=== PATIENT | female | born 1980 | race Caucasian/White ===

== ENCOUNTER 2016-12-15 23:10 | Emergency (ER) | payer SELFPAY ==
[2016-12-15 23:44] VITALS: BP 137/65
--- NOTE | 2016-12-16 | EDM.PDOC ---
ED HPI GENERAL MEDICAL PROBLEM - General Chief Complaint: General Stated Complaint: numbness R arm Time Seen by Provider: 12/15/16 23:30 Source of Information: Reports: Patient History Limitations: Reports: No limitations - History of Present Illness INITIAL COMMENTS - FREE TEXT/NARRATIVE: PT STATES SHE HAS BEEN SEPRESSED LAST FEW DATS. TODAY SHE FELT "OFF" ALL DAY. TOOK 0.5 ATIVAN TO SLEEP AND DEVELOPED RIGHT KLBEER NUMBNESS. BECAME ANXIOUS AND GOT ON COMPUTER TO SEE IF SYMPTOMS WERE WORRISOME. THEN DEVELOPED VAGUE CP AND DECIDED TO PRESENT TO ER. DENIES FEVER, DIAPHORESIS, N/V, FACIAL NUMBNESS Onset: today Location: Reports: chest, upper extremity, right Quality: Reports: Other (NUMBNESS) Improves with: Reports: None Worsens with: Reports: None Associated Symptoms: Reports: chest pain. 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: Other (see below) Other Treatments WATCH MANUFACTURING SUPERVISOR: lorazepam 0.5mg - Related Data Allergies Allergy/AdvReac Type Severity Reaction Status Date / Time amoxicillin [Amoxicillin] Allergy Anaphylactic Verified 12/15/16 23:13 Shock Home Meds: Home Meds LORazepam [LORazepam] 0.5 mg PO DAILY PRN 08/23/16 [History] Past Medical History - Past Health History Medical/Surgical History: Denies Medical/Surgical History Other Cardiovascular History: Peripheral artery disease Respiratory History: Reports: Other (see below) 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: smoker 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: Psychiatric History: Reports: Anxiety, Panic attack Social & Family History - Family History Cardiac: Reports: Other (see below) Other Cardiac Family History: reports has family has cardiac issues - Tobacco Use Smoking Status *Q: Current Every Day Smoker Years of Tobacco use: 10 Packs/Tins Daily: 0.5 Used Tobacco, but Quit: No Second Hand Smoke Exposure: Yes - Caffeine Use Caffeine Use: Reports: Coffee - Alcohol Use Days Per Week of Alcohol Use: 0 - Recreational Drug Use Recreational Drug Use: No - Living Situation & Occupation Living situation: Reports: single, with significant other Occupation: employed ED ROS GENERAL - Review of Systems Review Of Systems: ROS reveals no pertinent complaints other than HPI. Constitutional: Reports: no symptoms HEENT: Reports: No symptoms Respiratory: Reports: No Symptoms Cardiovascular: Reports: No symptoms Endocrine: Reports: no symptoms GI/Abdominal: Reports: No symptoms : Reports: no symptoms Musculoskeletal: Reports: no symptoms Skin: Reports: no symptoms Neurological: Reports: No Symptoms Psychiatric: Reports: Anxiety Hematologic/Lymphatic: Reports: no symptoms Immunologic: Reports: no symptoms ED EXAM, GENERAL - Physical Exam Exam: See Below Exam Limited By: No limitations General Appearance: alert, WD/WN, anxious Eye Exam: bilateral eye: normal inspection Nose: normal inspection, normal mucosa, no blood Throat/Mouth: Normal inspection, Normal oropharynx, No airway compromise Head: atraumatic, normocephalic Neck: normal inspection, supple Respiratory/Chest: no respiratory distress, lungs clear, normal breath sounds, no accessory muscle use, chest non-tender Cardiovascular: regular rate, rhythm, no murmur GI/Abdominal: normal bowel sounds, soft, non tender, no organomegaly, no distention, no abnormal bruit, no mass Back Exam: normal inspection. No: CVA tenderness (L), CVA tenderness (R) Extremities: normal inspection, normal range of motion, non-tender, no pedal edema, normal capillary refill Neurological: alert, oriented, normal cognition Psychiatric: anxious Skin Exam: Warm, Dry, Intact, Normal color, No rash Lymphatic: no adenopathy Course - Vital Signs Last Recorded V/S: Last Vital Signs Temp 97.9 F 12/15/16 23:17 Pulse 89 12/15/16 23:30 Resp 18 12/15/16 23:30 BP 137/65 12/15/16 23:30 Pulse Ox 100 12/15/16 23:30 - Orders/Labs/Meds Orders: Active Orders 24 hr Category Date Time Status EKG Documentation Completion [RC] ASDIRECTED Care 12/15/16 23:23 Active EKG 12 Lead [EK] Routine Ther 12/15/16 23:23 Ordered - Re-Assessments/Exams Free Text/Narrative Re-Assessment/Exam: 12/16/16 00:00 PT AFEBRILE, NONTOXIC APPEARING, RUE NUMBNESS RESOLVED WHILE IN ER. PT FEELING BETTER. WILL TAKE XANAX WHEN SHE GETS HOME AND F/U [facility] PCP Departure - Departure Time of Disposition: 00:04 Disposition: Home, Self-Care 01 Condition: good Clinical Impression: Anxiety attack Instructions: Panic Attacks, [id number] Forms: ED Department Discharge Additional Instructions: FOLLOW UP WITH PCP IN NEXT 2 DAYS. RETURN TO ER SOONER IF SYMPTOMS WORSEN - My Orders Last 24 Hours: My Active Orders 12/15/16 23:23 EKG Documentation Completion [RC] ASDIRECTED EKG 12 Lead [EK] Routine - Assessment/Plan Last 24 Hours: My Active Orders 12/15/16 23:23 EKG Documentation Completion [RC] ASDIRECTED EKG 12 Lead [EK] Routine
[2016-12-16] MEDS ORDERED: Ketorolac 60 MG/2 ML SDV IM ONE (00:02)
== END 2016-12-16 00:08 | disposition home or self-care (01) ==
LOC: KA.ED 23:10
DX: F41.9 Anxiety disorder, unspecified (principal); F17.210 Nicotine dependence, cigarettes, uncomplicated; Z88.1 Allergy status to other antibiotic agents
CPT/HCPCS: 96372; 99283; J1885; 93005; 99282

== ENCOUNTER 2017-01-29 03:15 | Emergency (ER) | payer SELFPAY ==
[2017-01-29 03:25] VITALS: BP 123/62
[2017-01-29] MEDS ORDERED: Ketorolac 60 MG/2 ML SDV IM ONE (04:04)
[2017-01-29] MEDS ORDERED: Sulfamethoxazole/Trimethoprim 800-160 MG Tab PO ONE (04:04)
--- NOTE | 2017-01-29 04:04 | EDM.PDOC ---
ED HPI GENERAL MEDICAL PROBLEM - General Chief Complaint: General Stated Complaint: periarea boil Time Seen by Provider: 01/29/17 03:45 Source of Information: Reports: Patient History Limitations: Reports: No Limitations - History of Present Illness INITIAL COMMENTS - FREE TEXT/NARRATIVE: 36 yo wf presents to ER with fever/chills which began tonight around 1am. Pt reports she has had a small vaginal abscess x 3 days which has began draining this evening after placing warm compresses to area and gentle squeezing. Pt denies any coughing or congestion. Pt reports dysuria x 1 day, but denies frequency or urgency. 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 - Related Data Allergies Allergy/AdvReac Type Severity Reaction Status Date / Time amoxicillin [Amoxicillin] Allergy Anaphylactic Verified 01/29/17 03:18 Shock Home Meds: Home Meds LORazepam [LORazepam] 0.5 mg PO DAILY PRN 08/23/16 [History] Sulfamethoxazole/Trimethoprim [Septra DS] 1 tab PO BID #20 tablet 01/29/17 [Rx] traMADol [Ultram] 50 mg PO Q6H PRN #15 tablet 01/29/17 [Rx] Past Medical History - Past Health History Medical/Surgical History: Denies Medical/Surgical History Other Cardiovascular History: Peripheral artery disease Respiratory History: Reports: Other (see below) 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: smoker 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: Psychiatric History: Reports: Anxiety, Panic attack Social & Family History - Family History Cardiac: Reports: Other (see below) Other Cardiac Family History: reports has family has cardiac issues - Tobacco Use Smoking Status *Q: Current Every Day Smoker Years of Tobacco use: 10 Packs/Tins Daily: 0.5 Used Tobacco, but Quit: No Second Hand Smoke Exposure: Yes - Caffeine Use Caffeine Use: Reports: Coffee - Alcohol Use Days Per Week of Alcohol Use: 0 - Recreational Drug Use Recreational Drug Use: No - Living Situation & Occupation Living situation: Reports: single, with significant other Occupation: employed ED ROS GENERAL - Review of Systems Review Of Systems: See Below Constitutional: Reports: Fever, Chills HEENT: Reports: No Symptoms Respiratory: Reports: No Symptoms Cardiovascular: Reports: No Symptoms Endocrine: Reports: No Symptoms GI/Abdominal: Reports: No Symptoms : Reports: Dysuria Musculoskeletal: Reports: No Symptoms Skin: Reports: No Symptoms Neurological: Reports: No Symptoms Psychiatric: Reports: No Symptoms Hematologic/Lymphatic: Reports: No Symptoms Immunologic: Reports: No Symptoms ED EXAM, GENERAL - Physical Exam Exam: See Below Exam Limited By: No Limitations General Appearance: Alert, WD/WN, No Apparent Distress Ears: Normal External Exam, Normal Canal, Hearing Grossly Normal, Normal TMs Ear Exam: Bilateral Ear: Auricle Normal, Canal Normal, TM normal Nose: Normal Inspection, Normal Mucosa, No Blood Throat/Mouth: Normal Inspection, Normal Lips, Normal Teeth, Normal Gums, Normal Oropharynx, Normal Voice, No Airway Compromise Head: Atraumatic, Normocephalic Neck: Normal Inspection, Supple, Non-Tender, Full Range of Motion Respiratory/Chest: No Respiratory Distress, Lungs Clear, Normal Breath Sounds, No Accessory Muscle Use, Chest Non-Tender Cardiovascular: Normal Peripheral Pulses, Regular Rate, Rhythm, No Edema, No Gallop, No JVD, No Murmur, No Rub GI/Abdominal: Normal Bowel Sounds, Soft, Non-Tender, No Organomegaly, No Distention, No Abnormal Bruit, No Mass (Female) Exam: Vaginal Lesions (right labial majora) Back Exam: Normal Inspection, Full Range of Motion, NT Extremities: Normal Inspection, Normal Range of Motion, Non-Tender, Normal Capillary Refill, No Pedal Edema Neurological: Alert, Oriented, CN II-XII Intact, Normal Cognition, Normal Gait, Normal Reflexes, No Motor/Sensory Deficits Psychiatric: Normal Affect, Normal Mood Skin Exam: Warm, Dry, Intact, Normal Color, No Rash Lymphatic: No Adenopathy Course - Vital Signs Last Recorded V/S: Last Vital Signs Temp 37.7 C 01/29/17 03:18 Pulse 92 01/29/17 03:18 Resp 20 01/29/17 03:18 BP 123/62 01/29/17 03:18 Pulse Ox 96 01/29/17 03:18 - Orders/Labs/Meds Orders: Active Orders 24 hr Category Date Time Status URINALYSIS W/MICROSCOPIC [UA W/MICROSCOPIC] [URIN] Stat Lab 01/29/17 03:57 Uncollected Labs: Laboratory Tests 01/29/17 Range/Units 03:55 Urine Color Yellow (YELLOW) Urine Appearance Clear (CLEAR) Urine pH 7.0 (5.0-9.0) Ur Specific [place] 1.010 (1.005-1.030) Urine Protein Negative (NEGATIVE) mg/dL Urine Glucose (UA) Negative (NEGATIVE) mg/dL Urine Ketones Negative (NEGATIVE) mg/dL Urine Occult Blood Trace-lysed H (NEGATIVE) Urine Nitrite Negative (NEGATIVE) Urine Bilirubin Negative (NEGATIVE) Urine Urobilinogen 0.2 (0.2-1.0) E.U./dL Ur Leukocyte Esterase Negative (NEGATIVE) Meds: Medications Discontinued Medications Generic Name Dose Route Start Last Admin Trade Name Freq PRN Reason Stop Dose Admin Ketorolac Tromethamine 60 mg 01/29/17 04:04 01/29/17 04:10 Toradol IM 01/29/17 04:05 60 mg ONETIME ONE Administration Trimethoprim/Sulfamethoxazole 1 tab 01/29/17 04:04 01/29/17 04:10 Septra Ds PO 01/29/17 04:05 1 tab ONETIME ONE Administration Departure - Departure Time of Disposition: 04:24 Disposition: Home, Self-Care 01 Condition: good Clinical Impression: Abscess, vagina Fever Qualifiers: Encounter type: initial encounter - Discharge Information Prescriptions: Sulfamethoxazole/Trimethoprim [Septra DS] 1 tab PO BID #20 tablet traMADol [Ultram] 50 mg PO Q6H PRN #15 tablet PRN Reason: Pain Instructions: Bartholin Cyst or Abscess, Fever, Adult Referrals: Siena Barron MD [Primary Care Provider] - Forms: ED Department Discharge - My Orders Last 24 Hours: My Active Orders 01/29/17 03:57 URINALYSIS W/MICROSCOPIC [UA W/MICROSCOPIC] [URIN] Stat - Assessment/Plan Last 24 Hours: My Active Orders 01/29/17 03:57 URINALYSIS W/MICROSCOPIC [UA W/MICROSCOPIC] [URIN] Stat Assessment:: 1. fever 2. labial majora abscess- <0.5cm- open and draining Plan: 1. motrin 600mg PO Q6 PRN 2. tylenol 1g Q6 PRN 3. ultram 50mg PO Q6 #15 4. septra DS 1 bid x 10 days 5. follow up in clinic in 2 days for recheck 6. discharge home
== END 2017-01-29 04:33 | disposition home or self-care (01) ==
LOC: KA.ED 03:15
DX: N76.0 Acute vaginitis (principal); F41.9 Anxiety disorder, unspecified; F17.210 Nicotine dependence, cigarettes, uncomplicated; Z88.1 Allergy status to other antibiotic agents; Z79.899 Other long term (current) drug therapy
CPT/HCPCS: 81001; 96372; 99283; A9270; J1885

== ENCOUNTER 2017-02-19 01:52 | Emergency (ER) | payer SELFPAY ==
[2017-02-19 01:58] VITALS: BP 139/83
--- NOTE | 2017-02-19 02:27 | EDM.PDOC ---
ED HPI GENERAL MEDICAL PROBLEM - General Chief Complaint: General Stated Complaint: R hip pain/sting Time Seen by Provider: 02/19/17 02:12 Source of Information: Reports: Patient History Limitations: Reports: No Limitations - History of Present Illness INITIAL COMMENTS - FREE TEXT/NARRATIVE: 36 yo WF presents to ER complaining of right sided back pain with radiation to right calf which began at 6:00pm yesterday. Pt reports she was sitting all day ( driving to [place] then sitting at a [employer] game all day and driving home). Pt reports worse pain with movement. Pt denies any urinary symptoms. Pt denies any lower extremity swelling or redness. 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 - Related Data Allergies Allergy/AdvReac Type Severity Reaction Status Date / Time amoxicillin [Amoxicillin] Allergy Anaphylactic Verified 02/19/17 01:54 Shock Home Meds: Home Meds LORazepam [LORazepam] 0.5 mg PO DAILY PRN 08/23/16 [History] Cyclobenzaprine [Flexeril] 10 mg PO TID PRN #15 tablet 02/19/17 [Rx] Prednisone [IJD: predniSONE] 20 mg PO WITHBREAKFAST #15 tab 02/19/17 [Rx] traMADol [Ultram] 50 mg PO Q6H #15 tablet 02/19/17 [Rx] Past Medical History - Past Health History Medical/Surgical History: Denies Medical/Surgical History Other Cardiovascular History: Peripheral artery disease Respiratory History: Reports: Other (See Below) 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: 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: Psychiatric History: Reports: Anxiety, Panic Attack Social & Family History - Family History Cardiac: Reports: Other (See Below) Other Cardiac Family History: reports has family has cardiac issues - Tobacco Use Smoking Status *Q: Current Every Day Smoker Years of Tobacco use: 10 Packs/Tins Daily: 0.5 Used Tobacco, but Quit: No Second Hand Smoke Exposure: Yes - Caffeine Use Caffeine Use: Reports: Coffee - Alcohol Use Days Per Week of Alcohol Use: 0 - Recreational Drug Use Recreational Drug Use: No - Living Situation & Occupation Living situation: Reports: Single, with Significant Other Occupation: Employed ED ROS GENERAL - Review of Systems Review Of Systems: See Below Constitutional: Reports: No Symptoms HEENT: Reports: No Symptoms Respiratory: Reports: No Symptoms Cardiovascular: Reports: No Symptoms Endocrine: Reports: No Symptoms GI/Abdominal: Reports: No Symptoms : Reports: No Symptoms Musculoskeletal: Reports: Back Pain Skin: Reports: No Symptoms Neurological: Reports: No Symptoms Psychiatric: Reports: No Symptoms Hematologic/Lymphatic: Reports: No Symptoms Immunologic: Reports: No Symptoms ED EXAM, GENERAL - Physical Exam Exam: See Below Exam Limited By: No Limitations General Appearance: Alert, WD/WN, No Apparent Distress Eye Exam: Bilateral Eye: EOMI, PERRL Ears: Normal External Exam, Normal Canal, Hearing Grossly Normal, Normal TMs Ear Exam: Bilateral Ear: Auricle Normal, Canal Normal, TM normal Nose: Normal Inspection, Normal Mucosa, No Blood Throat/Mouth: Normal Inspection, Normal Lips, Normal Teeth, Normal Gums, Normal Oropharynx, Normal Voice, No Airway Compromise Head: Atraumatic, Normocephalic Neck: Normal Inspection, Supple, Non-Tender, Full Range of Motion Respiratory/Chest: No Respiratory Distress, Lungs Clear, Normal Breath Sounds, No Accessory Muscle Use, Chest Non-Tender Cardiovascular: Normal Peripheral Pulses, Regular Rate, Rhythm, No Edema, No Gallop, No JVD, No Murmur, No Rub GI/Abdominal: Normal Bowel Sounds, Soft, Non-Tender, No Organomegaly, No Distention, No Abnormal Bruit, No Mass Back Exam: Normal Inspection, Full Range of Motion, Muscle Spasm Extremities: Normal Inspection, Normal Range of Motion, Non-Tender, Normal Capillary Refill, No Pedal Edema Neurological: Alert, Oriented, CN II-XII Intact, Normal Cognition, Normal Gait, Normal Reflexes, No Motor/Sensory Deficits Psychiatric: Normal Affect, Normal Mood Skin Exam: Warm, Dry, Intact, Normal Color, No Rash Lymphatic: No Adenopathy Course - Vital Signs Last Recorded V/S: Last Vital Signs Temp 36.1 C 02/19/17 01:57 Pulse 78 02/19/17 01:57 Resp 18 02/19/17 01:57 BP 139/83 02/19/17 01:57 Pulse Ox 98 02/19/17 01:57 Departure - Departure Time of Disposition: 02:30 Disposition: Home, Self-Care 01 Condition: good Clinical Impression: Sciatica of right side - Discharge Information Prescriptions: Cyclobenzaprine [Flexeril] 10 mg PO TID PRN #15 tablet PRN Reason: Muscle Spasm Prednisone [IJD: predniSONE] 20 mg PO WITHBREAKFAST #15 tab traMADol [Ultram] 50 mg PO Q6H #15 tablet Instructions: Sciatica Forms: ED Department Discharge - Assessment/Plan Assessment:: 1. acute sciatica Plan: 1. d/c home 2. ultram 50mg po q6 prn pain 3. flexiril 10mg po tid prn muscle spasms 4. prednisone 60mg po qd x 5 days 5. stretching/heat/activity 6. follow up with Dr Hayward for further evaluation and treatment
[2017-02-19] MEDS ORDERED: traMADol 50 MG Tab PO ONE (02:32)
[2017-02-19] MEDS ORDERED: predniSONE 20 MG Tab PO PRN (02:32)
[2017-02-19] MEDS ORDERED: predniSONE 20 MG Tab ONE (02:37)
== END 2017-02-19 02:50 | disposition home or self-care (01) ==
LOC: KA.ED 01:52
DX: M54.31 Sciatica, right side (principal); F41.0 Panic disorder [episodic paroxysmal anxiety]; F17.210 Nicotine dependence, cigarettes, uncomplicated; Z79.899 Other long term (current) drug therapy; Z88.1 Allergy status to other antibiotic agents
CPT/HCPCS: 99283; A9270

== ENCOUNTER 2017-07-08 21:19 | Emergency (ER) | payer SELFPAY ==
[2017-07-08 21:55] VITALS: BP 134/74
[2017-07-08] MEDS ORDERED: Albuterol/Ipratropium 3.0-0.5 MG/3 ML Neb Soln NEB ONE (21:58)
[2017-07-08] MEDS ORDERED: Ketorolac 60 MG/2 ML SDV IM ONE (21:58)
--- NOTE | 2017-07-08 21:58 | EDM.PDOC ---
ED HPI GENERAL MEDICAL PROBLEM - General Chief Complaint: General Stated Complaint: "I don't feel well" Time Seen by Provider: 07/08/17 21:35 Source of Information: Reports: Patient History Limitations: Reports: No Limitations - History of Present Illness INITIAL COMMENTS - FREE TEXT/NARRATIVE: 37 YO WF presents to ER complaining of a 3 day history of productive cough, congestion, and mild shortness of breath. Pt reports she was seen by her PCP today and was diagnosed with a sinus infection and put on cipro. Pt states she doesn't feel any better and now has complaints of left upper back pain. Pt denies any fever but states she has been having chills for the last 2 days. Pt smokes 1/2 pack of cigarettes a day. Onset Date: 07/05/17 Duration: Day(s): (3) Location: Reports: Back Quality: Reports: Ache Severity: Mild Improves with: Reports: Rest Worsens with: Reports: Movement Associated Symptoms: Reports: Cough, cough w sputum, Fever/Chills, Headaches, Malaise, Shortness of Breath. 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 - Related Data Allergies Allergy/AdvReac Type Severity Reaction Status Date / Time amoxicillin [Amoxicillin] Allergy Anaphylactic Verified 07/08/17 21:24 Shock Home Meds: Home Meds LORazepam [LORazepam] 0.5 mg PO DAILY PRN 08/23/16 [History] Cyclobenzaprine [Flexeril] 10 mg PO TID PRN #15 tablet 02/19/17 [Rx] Prednisone [IJD: predniSONE] 20 mg PO WITHBREAKFAST #15 tab 02/19/17 [Rx] traMADol [Ultram] 50 mg PO Q6H #15 tablet 02/19/17 [Rx] Albuterol [IMW: Albuterol HFA] 1 puff .XX Q4HR #8 gm 07/08/17 [Rx] Azithromycin [Zithromax] 250 mg PO DAILY #6 tablet 07/08/17 [Rx] Cetirizine [ZyrTEC] 10 mg PO DAILY #30 tablet 07/08/17 [Rx] Past Medical History - Past Health History Medical/Surgical History: Denies Medical/Surgical History Other Cardiovascular History: Peripheral artery disease Respiratory History: Reports: Other (See Below) 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: smoker 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: Psychiatric History: Reports: Anxiety, Panic Attack Social & Family History - Family History Cardiac: Reports: Other (See Below) Other Cardiac Family History: reports has family has cardiac issues - Tobacco Use Smoking Status *Q: Current Every Day Smoker Years of Tobacco use: 10 Packs/Tins Daily: 0.5 Used Tobacco, but Quit: No Second Hand Smoke Exposure: Yes - Caffeine Use Caffeine Use: Reports: Coffee - Alcohol Use Days Per Week of Alcohol Use: 0 - Recreational Drug Use Recreational Drug Use: No - Living Situation & Occupation Living situation: Reports: Single, with Significant Other Occupation: Employed ED ROS GENERAL - Review of Systems Review Of Systems: See Below Constitutional: Reports: No Symptoms, Malaise HEENT: Reports: Sinus Problem. Denies: Throat Pain Respiratory: Reports: Shortness of Breath Cardiovascular: Reports: No Symptoms Endocrine: Reports: No Symptoms GI/Abdominal: Reports: No Symptoms : Reports: No Symptoms Musculoskeletal: Reports: No Symptoms Skin: Reports: No Symptoms Neurological: Reports: No Symptoms Psychiatric: Reports: No Symptoms Hematologic/Lymphatic: Reports: No Symptoms Immunologic: Reports: No Symptoms ED EXAM, GENERAL - Physical Exam Exam: See Below Exam Limited By: No Limitations General Appearance: Alert, WD/WN, No Apparent Distress Ears: Normal External Exam, Normal Canal, Hearing Grossly Normal, Normal TMs Throat/Mouth: Normal Inspection, Normal Lips, Normal Teeth, Normal Gums, Normal Oropharynx, Normal Voice, No Airway Compromise Head: Atraumatic, Normocephalic Neck: Normal Inspection, Supple, Non-Tender, Full Range of Motion Respiratory/Chest: No Respiratory Distress, Normal Breath Sounds, No Accessory Muscle Use, Chest Non-Tender, Wheezing Cardiovascular: Normal Peripheral Pulses, Regular Rate, Rhythm, No Edema, No Gallop, No JVD, No Murmur, No Rub GI/Abdominal: Normal Bowel Sounds, Soft, Non-Tender, No Organomegaly, No Distention, No Abnormal Bruit, No Mass Back Exam: Muscle Spasm (left upper back) Extremities: Normal Inspection, Normal Range of Motion, Non-Tender, Normal Capillary Refill, No Pedal Edema Neurological: Alert, Oriented, CN II-XII Intact, Normal Cognition, Normal Gait, Normal Reflexes, No Motor/Sensory Deficits Psychiatric: Normal Affect, Normal Mood Skin Exam: Warm, Dry, Intact, Normal Color, No Rash Lymphatic: No Adenopathy Course - Vital Signs Last Recorded V/S: Last Vital Signs Temp 37.3 C 07/08/17 21:25 Pulse 82 07/08/17 21:58 Resp 18 07/08/17 21:25 BP 134/74 07/08/17 21:25 Pulse Ox 99 07/08/17 21:58 - Orders/Labs/Meds Orders: Active Orders 24 hr Category Date Time Status RT Aerosol Therapy [RC] ASDIRECTED Care 07/08/17 21:58 Active Chest 2V [CR] Stat Exams 07/08/17 21:40 Taken INFLUENZA A+B AG SCREEN [RM] Stat Lab 07/08/17 21:41 Ordered UA W/O MICROSCOPIC [URIN] Stat Lab 07/08/17 21:30 Results Labs: Laboratory Tests 07/08/17 07/08/17 07/08/17 Range/Units 21:30 21:30 21:30 Specimen Type Urincc Urine Color Light yellow Light yellow (YELLOW) Urine Appearance Clear Clear (CLEAR) Urine pH 7.0 7.0 (5.0-9.0) Ur Specific [place] 1.010 <= 1.005 (1.005-1.030) Urine Protein Negative Negative (NEGATIVE) mg/dL Urine Glucose (UA) Negative Negative (NEGATIVE) mg/dL Urine Ketones Negative Negative (NEGATIVE) mg/dL Urine Occult Blood Trace-intact H Trace-lysed H (NEGATIVE) Urine Nitrite Negative Negative (NEGATIVE) Urine Bilirubin Negative Negative (NEGATIVE) Urine Urobilinogen 0.2 0.2 (0.2-1.0) E.U./dL Ur Leukocyte Esterase Negative Negative (NEGATIVE) Urine RBC 5-10 H /HPF Urine WBC 0-5 /HPF Ur Epithelial Cells Rare /LPF Urine Bacteria Rare (NONE TO FEW) /HPF Urine HCG, Qual Negative (NEGATIVE) Meds: Medications Discontinued Medications Generic Name Dose Route Start Last Admin Trade Name Freq PRN Reason Stop Dose Admin Albuterol/Ipratropium 3 ml 07/08/17 21:58 07/08/17 22:15 Duoneb 3.0-0.5 Mg/3 Ml NEB 07/08/17 21:59 3 ml ONETIME ONE Administration Ketorolac Tromethamine 60 mg 07/08/17 21:58 07/08/17 22:10 Toradol IM 07/08/17 21:59 60 mg ONETIME ONE Administration - Radiology Interpretation Free Text/Narrative:: CXR- NAD Departure - Departure Time of Disposition: 22:28 Disposition: Home, Self-Care 01 Condition: Good Clinical Impression: Acute bronchitis Qualifiers: Bronchitis organism: unspecified organism Qualified Code(s): J20.9 - Acute bronchitis, unspecified - Discharge Information Prescriptions: Albuterol [IMW: Albuterol HFA] 1 puff .XX Q4HR #8 gm Azithromycin [Zithromax] 250 mg PO DAILY #6 tablet Cetirizine [ZyrTEC] 10 mg PO DAILY #30 tablet Instructions: Viral Respiratory Infection, Acute Bronchitis Referrals: Siena Barron MD [Primary Care Provider] - Forms: ED Department Discharge - My Orders Last 24 Hours: My Active Orders 07/08/17 21:30 UA W/O MICROSCOPIC [URIN] Stat 07/08/17 21:40 Chest 2V [CR] Stat 07/08/17 21:41 INFLUENZA A+B AG SCREEN [RM] Stat 07/08/17 21:58 RT Aerosol Therapy [RC] ASDIRECTED - Assessment/Plan Last 24 Hours: My Active Orders 07/08/17 21:30 UA W/O MICROSCOPIC [URIN] Stat 07/08/17 21:40 Chest 2V [CR] Stat 07/08/17 21:41 INFLUENZA A+B AG SCREEN [RM] Stat 07/08/17 21:58 RT Aerosol Therapy [RC] ASDIRECTED Assessment:: 1. acute bronchitis 2. viral syndrome Plan: 1. albuterol HFA 2 puffs Q4 and PRN 2. zithromax- zpak 3. zyrtec 10mg PO QD 4. motrin/tylenol 5. stop cipro 6. follow up with PCP for further evaluation and treatment
== END 2017-07-08 22:38 | disposition home or self-care (01) ==
LOC: KA.ED 21:19
DX: J20.9 Acute bronchitis, unspecified (principal); F17.210 Nicotine dependence, cigarettes, uncomplicated; Z88.1 Allergy status to other antibiotic agents; Z79.899 Other long term (current) drug therapy
CPT/HCPCS: 71020; 81001; 81025; 87804; 94640; 96372; 99283; J1885

== ENCOUNTER 2017-09-23 02:00 | Emergency (ER) | payer SELFPAY ==
[2017-09-23 02:21] VITALS: BP 155/92
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
== END 2017-09-23 02:40 | disposition home or self-care (01) ==
LOC: KA.ED 02:00
DX: R51 Headache (principal); F17.210 Nicotine dependence, cigarettes, uncomplicated; Z88.1 Allergy status to other antibiotic agents; Z79.899 Other long term (current) drug therapy; Y04.8XXA Assault by other bodily force, initial encounter
CPT/HCPCS: 99283; 99284

== ENCOUNTER 2017-11-27 07:59 | Emergency (ER) | payer SELFPAY ==
[2017-11-27 08:11] VITALS: BP 147/87
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
[2017-11-27] MEDS ORDERED: Methocarbamol 500 MG Tab PO ONE (09:07)
[2017-11-27 09:12] LABS: CHLORIDE,CL 102 mmol/L (98-115); SODIUM,NA 139 mmol/L (136-145)
== END 2017-11-27 09:21 | disposition home or self-care (01) ==
LOC: KA.ED 07:59
DX: S86.912A Strain of unspecified muscle(s) and tendon(s) at lower leg level, left leg, initial encounter (principal); F17.210 Nicotine dependence, cigarettes, uncomplicated; Z79.899 Other long term (current) drug therapy; Z88.1 Allergy status to other antibiotic agents; W00.0XXA Fall on same level due to ice and snow, initial encounter
CPT/HCPCS: 36415; 80048; 84702; 85025; 99283; A9270

== ENCOUNTER 2018-06-14 20:22 | Emergency (ER) | payer BC ==
--- NOTE | 2018-06-14 21:18 | EDM.PDOC ---
ED HPI GENERAL MEDICAL PROBLEM - General Chief Complaint: Lower Extremity Injury/Pain Time Seen by Provider: 06/14/18 20:57 Source of Information: Reports: Patient History Limitations: Reports: No Limitations - History of Present Illness INITIAL COMMENTS - FREE TEXT/NARRATIVE: Patient presents with concern of DVT. She says she has been bedridden for 6 days with illness. She had left calf swelling 6 weeks ago and saw her PCP in clinic with a negative d-dimer. The leg got better but not back to normal. The last 3 days it has been worsening each day. She has swelling in left foot and tenderness in left calf and medial thigh. She has also noticed occasional brief episodes of shortness of breath the past 3 days. A couple of times a brief sharp pain in mid-back with the dyspnea. She has never been diagnosed with DVT/PE in the past. Left Leg Pain Score (Numeric/FACES): 7 - Related Data Allergies Allergy/AdvReac Type Severity Reaction Status Date / Time amoxicillin [Amoxicillin] Allergy Anaphylactic Verified 06/14/18 20:23 Shock Home Meds: Home Meds LORazepam 0.5 mg PO DAILY PRN 08/23/16 [History] Past Medical History - Past Health History Medical/Surgical History: Denies Medical/Surgical History Other Cardiovascular History: Peripheral artery disease Respiratory History: Reports: Other (See Below) 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: smoker [employer] History: Reports: Psychiatric History: Reports: Anxiety, Panic Attack Social & Family History - Family History Cardiac: Reports: Other (See Below) Other Cardiac Family History: reports has family has cardiac issues - Tobacco Use Smoking Status *Q: Current Every Day Smoker Years of Tobacco use: 10 Packs/Tins Daily: 0.5 - Caffeine Use Caffeine Use: Reports: Coffee - Recreational Drug Use Recreational Drug Use: No - Living Situation & Occupation Living situation: Reports: Single, with Significant Other Occupation: Employed Review of Systems - Review of Systems Review Of Systems: See Below Constitutional: Denies: Chills, Diaphoresis, Fever Eyes: Reports: No Symptoms. Denies: Vision Change Ears: Reports: No Symptoms Nose: Reports: No Symptoms Mouth/Throat: Reports: No Symptoms Respiratory: Denies: Cough, Hemoptysis Cardiovascular: Denies: Chest Pain, Irregular Heart Rate, Lightheadedness, Syncope GI/Abdominal: Denies: Abdominal Pain, Vomiting Genitourinary: Reports: No Symptoms Musculoskeletal: Denies: Neck Pain, Shoulder Pain, Arm Pain, Back Pain, Hand Pain Skin: Denies: Cyanosis, Jaundice, Mottled, Pallor, Diaphoresis Neurological: Denies: Confusion, Dizziness, Headache, Seizure, Syncope, Trouble Speaking, Weakness Psychiatric: Denies: Confusion ED EXAM, GENERAL - Physical Exam Exam: See Below Exam Limited By: No Limitations General Appearance: Alert, WD/WN, No Apparent Distress, Anxious Eye Exam: Bilateral Eye: EOMI, Normal Inspection, PERRL Ears: Normal External Exam, Hearing Grossly Normal Nose: Normal Inspection, No Blood Throat/Mouth: Normal Inspection, Normal Lips, Normal Voice, No Airway Compromise Head: Atraumatic, Normocephalic Neck: Normal Inspection, Full Range of Motion Respiratory/Chest: No Respiratory Distress, Lungs Clear, Normal Breath Sounds, No Accessory Muscle Use Cardiovascular: Regular Rate, Rhythm, No Murmur GI/Abdominal: No Distention Back Exam: Normal Inspection, Full Range of Motion. No: CVA Tenderness (L), CVA Tenderness (R) Extremities: Normal Range of Motion, Other (There is a mild subtle swelling of left foot and ankle compared to right but not obvious at first. Mendez's is negative. Calf palpation is tender at mid-posterior calf and proximal sporadically up medial posterior calf to mid-thigh.). No: Mendez's Sign, Limited Range of Motion, Increased Warmth, Mottled, Pallor Neurological: Alert, Oriented, Normal Cognition, No Motor/Sensory Deficits Psychiatric: Normal Affect, Normal Mood, Anxious Skin Exam: Warm, Dry, Intact, Normal Color, No Rash Course - Vital Signs Last Recorded V/S: Last Vital Signs Temp 98.3 F 06/14/18 20:26 Pulse 82 06/14/18 23:12 Resp 14 06/14/18 23:12 BP 124/72 06/14/18 23:12 Pulse Ox 96 06/14/18 23:12 - Orders/Labs/Meds Orders: Active Orders 24 hr Category Date Time Status Chest w Cont [CT] Stat Exams 06/14/18 21:10 Ordered Labs: Laboratory Tests 06/14/18 06/14/18 06/14/18 Range/Units 21:25 21:25 21:25 WBC 12.06 H (5.00-10.00) 10^3/uL RBC 4.53 (3.80-5.50) 10^6/uL Hgb 14.5 (12.0-16.0) g/dL Hct 41.4 (37.0-47.0) % MCV 91.4 (82.0-92.0) fL MCH 32.0 H (27.0-31.0) pg MCHC 35.0 (32.0-36.0) g/dL RDW 12.0 (11.5-14.5) % Plt Count 227 (150-400) 10^3/uL MPV 10.5 H (7.4-10.4) fL Immature Gran % (Auto) 0.2 (0.0-5.0) % Neut % (Auto) 64.0 (50.0-70.0) % Lymph % (Auto) 23.0 (20.0-40.0) % [place] % (Auto) 11.0 H (2.0-8.0) % Eos % (Auto) 1.4 (1.0-3.0) % Baso % (Auto) 0.4 (0.0-1.0) % Immature Gran # (Auto) 0.03 (0.00-0.50) 10^3/uL Neut # (Auto) 7.71 H (2.50-7.00) 10^3/uL Lymph # (Auto) 2.77 (1.00-4.00) 10^3/uL [place] # (Auto) 1.33 H (0.10-0.80) 10^3/uL Eos # (Auto) 0.17 (0.10-0.30) 10^3/uL Baso # (Auto) 0.05 (0.00-0.10) 10^3/uL D-Dimer, Quantitative 117 (<400) ng/mL Urine HCG, Qual Negative (NEGATIVE) Meds: Medications Discontinued Medications Generic Name Dose Route Start Last Admin Trade Name Freq PRN Reason Stop Dose Admin Lorazepam 0.5 mg 06/14/18 21:09 06/14/18 21:22 Ativan IVPUSH 06/14/18 21:10 0.5 mg ONETIME ONE Administration - Re-Assessments/Exams Free Text/Narrative Re-Assessment/Exam: 06/14/18 23:[address] and d-dimer were negative clot. Discussed findings and recommendations with patient. She is feeling better after the lorazepam and is discharged to home in stable condition. Departure - Departure Time of Disposition: 23:15 Disposition: Home, Self-Care 01 Condition: Good Clinical Impression: Pain of left calf - Discharge Information Forms: ED Department Discharge Additional Instructions: 1. Follow up with your PCP for recheck of leg pain and anxiety medication. 2. Return to ER as needed. - My Orders Last 24 Hours: My Active Orders 06/14/18 21:10 Chest w Cont [CT] Stat - Assessment/Plan Last 24 Hours: My Active Orders 06/14/18 21:10 Chest w Cont [CT] Stat
[2018-06-14] MEDS: LORazepam 2 MG/ML SDV IVPUSH ONE (21:22)
[2018-06-14] MEDS: Iopamidol 755 Mg/ML 75 ML Bottle IVPUSH ONE (22:00)
[2018-06-14] MEDS: Sodium Chloride 0.9% 50 ML IV SCH (22:00)
[2018-06-14 23:13] VITALS: BP 124/72
== END 2018-06-14 23:20 | disposition home or self-care (01) ==
LOC: KA.ED 20:22
DX: M79.662 Pain in left lower leg (principal); F41.9 Anxiety disorder, unspecified; M54.6 Pain in thoracic spine; F17.210 Nicotine dependence, cigarettes, uncomplicated; Z88.1 Allergy status to other antibiotic agents
CPT/HCPCS: 71260; 81025; 85025; 85379; 96374; 99284; J2060; J7050; Q9967

== ENCOUNTER 2018-10-05 19:23 | Emergency (ER) | payer SELFPAY ==
[2018-10-05 19:45] VITALS: BP 146/83
--- NOTE | 2018-10-05 20:18 | EDM.PDOC ---
ED HPI GENERAL MEDICAL PROBLEM - General Chief Complaint: General Stated Complaint: headache, coughing up mucous Time Seen by Provider: 10/05/18 20:12 Source of Information: Reports: Patient History Limitations: Reports: No Limitations - History of Present Illness INITIAL COMMENTS - FREE TEXT/NARRATIVE: Patient is a 38-year-old female who presents to the emergency department this evening with a complaint of sinus pressure, cough, and low-grade fever. Patient states symptoms began about 2 days ago. Symptoms seem to be progressing. Patient now has developed sinus pressure and headache. Patient states when she clears her throat she does have yellow phlegm and at times with speckles of blood. Patient denies shortness of breath, chest pain, lower extremity edema, nausea, vomiting, diarrhea, or out of country travel. Onset: Gradual Onset Date: 10/03/18 Duration: Day(s): Location: Reports: Face Quality: Reports: Pressure Severity: Mild Improves with: Reports: None Worsens with: Reports: None Associated Symptoms: Reports: Fever/Chills - Related Data Allergies Allergy/AdvReac Type Severity Reaction Status Date / Time amoxicillin [Amoxicillin] Allergy Anaphylactic Verified 10/05/18 19:45 Shock Home Meds: Home Meds . [No Known Home Meds] 10/05/18 [History] Past Medical History - Past Health History Medical/Surgical History: Denies Medical/Surgical History Other Cardiovascular History: Peripheral artery disease Respiratory History: Reports: Other (See Below) 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: smoker [employer] History: Reports: Musculoskeletal History: Reports: Fracture Psychiatric History: Reports: Anxiety, Panic Attack - Infectious Disease History Infectious Disease History: Reports: Chicken Pox - Past Surgical History HEENT Surgical History: Reports: Oral Surgery Cardiovascular Surgical History: Reports: None Respiratory Surgical History: Reports: None Musculoskeletal Surgical History: Reports: None Social & Family History - Family History Family Medical History: Noncontributory Cardiac: Reports: Other (See Below) Other Cardiac Family History: reports has family has cardiac issues - Tobacco Use Smoking Status *Q: Current Every Day Smoker Years of Tobacco use: 10 Packs/Tins Daily: 0.3 Used Tobacco, but Quit: No Second Hand Smoke Exposure: Yes - Caffeine Use Caffeine Use: Reports: Coffee - Recreational Drug Use Recreational Drug Use: No - Living Situation & Occupation Living situation: Reports: Single, with Significant Other Occupation: Employed ED ROS GENERAL - Review of Systems Review Of Systems: ROS reveals no pertinent complaints other than HPI. Constitutional: Reports: No Symptoms HEENT: Reports: Nosebleed, Sinus Problem Respiratory: Reports: Cough Cardiovascular: Reports: No Symptoms Endocrine: Reports: No Symptoms GI/Abdominal: Reports: No Symptoms : Reports: No Symptoms Musculoskeletal: Reports: No Symptoms Skin: Reports: No Symptoms Neurological: Reports: No Symptoms Psychiatric: Reports: No Symptoms Hematologic/Lymphatic: Reports: No Symptoms Immunologic: Reports: No Symptoms ED EXAM, GENERAL - Physical Exam Exam: See Below Exam Limited By: No Limitations General Appearance: Alert, WD/WN, No Apparent Distress Eye Exam: Bilateral Eye: Normal Inspection Ears: Normal External Exam, Normal Canal, Normal TMs Nose: Other (Bilateral coastal erythema with yellow discharge) Throat/Mouth: Normal Inspection, Normal Oropharynx, No Airway Compromise Head: Atraumatic, Normocephalic Neck: Normal Inspection, Supple, Non-Tender Respiratory/Chest: No Respiratory Distress, Lungs Clear, Normal Breath Sounds, No Accessory Muscle Use Cardiovascular: Regular Rate, Rhythm, No Murmur GI/Abdominal: Normal Bowel Sounds, Soft, Non-Tender Extremities: Normal Inspection, No Pedal Edema Neurological: Alert, Oriented, Normal Cognition Psychiatric: Normal Affect, Normal Mood Skin Exam: Warm, Dry, Intact, Normal Color, No Rash Lymphatic: No Adenopathy Course - Vital Signs Last Recorded V/S: Last Vital Signs Temp 97.5 F 10/05/18 19:30 Pulse 79 10/05/18 19:30 Resp 20 10/05/18 19:30 BP 146/83 H 10/05/18 19:30 Pulse Ox 97 10/05/18 19:30 - Orders/Labs/Meds Orders: Active Orders 24 hr Category Date Time Status Azithromycin [Zithromax] Med 10/05/18 20:36 Once 500 mg PO ONETIME ONE Medication Orders Azithromycin (Zithromax) 500 mg PO ONETIME ONE Stop: 10/05/18 20:37 Meds: Medications Generic Name Dose Route Start Last Admin Trade Name Freq PRN Reason Stop Dose Admin Azithromycin 500 mg 10/05/18 20:36 Zithromax PO 10/05/18 20:37 ONETIME ONE Discontinued Medications Generic Name Dose Route Start Last Admin Trade Name Freq PRN Reason Stop Dose Admin Azithromycin 500 mg/ Sodium 250 mls @ 250 mls/hr 10/05/18 20:33 Chloride IV 10/05/18 21:32 ONETIME ONE - Re-Assessments/Exams Free Text/Narrative Re-Assessment/Exam: 10/05/18 20:37 Patient afebrile, nontoxic appearing, vital signs stable, influenza negative. Patient will follow-up with PCP Departure - Departure Time of Disposition: 20:43 Disposition: Home, Self-Care 01 Condition: Good Clinical Impression: Sinusitis - Discharge Information Instructions: Sinusitis, Adult, [id number], Sinus Rinse, [id number] Referrals: Siena Barron MD [Primary Care Provider] - Forms: ED Department Discharge Additional Instructions: Follow-up with PCP in one to 2 days. Return to emergency department sooner if symptoms continue or worsen - My Orders Last 24 Hours: My Active Orders 10/05/18 20:36 Azithromycin [Zithromax] 500 mg PO ONETIME ONE - Assessment/Plan Last 24 Hours: My Active Orders 10/05/18 20:36 Azithromycin [Zithromax] 500 mg PO ONETIME ONE Assessment:: Sinusitis Plan: Follow-up with PCP
[2018-10-05] MEDS: Azithromycin 250 MG Tab PO ONE (20:40)
[2018-10-05] MEDS: Azithromycin 250 MG Tab ONE (20:41)
[2018-10-05] MEDS: Azithromycin 500 MG in Sodium Chloride 0.9% 250 ML IV ONE (20:42)
== END 2018-10-05 20:50 | disposition home or self-care (01) ==
LOC: KA.ED 19:23
DX: J32.9 Chronic sinusitis, unspecified (principal); Z88.1 Allergy status to other antibiotic agents; F17.210 Nicotine dependence, cigarettes, uncomplicated
CPT/HCPCS: 87804; 99283; A9270-GY

== ENCOUNTER 2018-12-03 01:38 | Emergency (ER) | payer SELFPAY ==
--- NOTE | 2018-12-03 02:18 | EDM.PDOC ---
ED HPI GENERAL MEDICAL PROBLEM - General Chief Complaint: General Stated Complaint: left knee pain Time Seen by Provider: 12/03/18 02:18 Source of Information: Reports: Patient History Limitations: Reports: No Limitations - History of Present Illness INITIAL COMMENTS - FREE TEXT/NARRATIVE: 38 yo WF presents to ER complaining of left knee pain which began 2 weeks ago. 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 Pt reports her pain is located to the back of her knee. Pt denies any calf pain or swelling. Pt denies any back pain or radiating pain down her leg. Pt denies any known injury. Pt able to ambulate without difficulty but states her knee feels "swollen and stiff". Duration: Week(s): (2) Location: Reports: Lower Extremity, Left Quality: Reports: Ache Severity: Mild Improves with: Reports: None Worsens with: Reports: None Associated Symptoms: Reports: No Other Symptoms - Related Data Allergies Allergy/AdvReac Type Severity Reaction Status Date / Time amoxicillin [Amoxicillin] Allergy Anaphylactic Verified 10/05/18 19:45 Shock Home Meds: Home Meds Azithromycin [Zithromax] 500 mg PO DAILY #4 tab 10/05/18 [Rx] Past Medical History - Past Health History Medical/Surgical History: Denies Medical/Surgical History Other Cardiovascular History: Peripheral artery disease Respiratory History: Reports: Other (See Below) 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: smoker 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: Musculoskeletal History: Reports: Fracture Psychiatric History: Reports: Anxiety, Panic Attack - Infectious Disease History Infectious Disease History: Reports: Chicken Pox - Past Surgical History HEENT Surgical History: Reports: Oral Surgery Cardiovascular Surgical History: Reports: None Respiratory Surgical History: Reports: None Musculoskeletal Surgical History: Reports: None Social & Family History - Family History Family Medical History: Noncontributory Cardiac: Reports: Other (See Below) Other Cardiac Family History: reports has family has cardiac issues - Caffeine Use Caffeine Use: Reports: Coffee - Living Situation & Occupation Living situation: Reports: Single, with Significant Other Occupation: Employed ED ROS GENERAL - Review of Systems Review Of Systems: See Below Constitutional: Reports: No Symptoms HEENT: Reports: No Symptoms Respiratory: Reports: No Symptoms Cardiovascular: Reports: No Symptoms Endocrine: Reports: No Symptoms GI/Abdominal: Reports: No Symptoms : Reports: No Symptoms Musculoskeletal: Reports: Joint Pain, Joint Swelling Skin: Reports: No Symptoms Neurological: Reports: No Symptoms Psychiatric: Reports: No Symptoms Hematologic/Lymphatic: Reports: No Symptoms Immunologic: Reports: No Symptoms ED EXAM, GENERAL - Physical Exam Exam: See Below Exam Limited By: No Limitations General Appearance: Alert, WD/WN, No Apparent Distress Head: Atraumatic, Normocephalic Neck: Normal Inspection, Supple, Non-Tender, Full Range of Motion Respiratory/Chest: No Respiratory Distress, Lungs Clear, Normal Breath Sounds, No Accessory Muscle Use, Chest Non-Tender Cardiovascular: Normal Peripheral Pulses, Regular Rate, Rhythm, No Edema, No Gallop, No JVD, No Murmur, No Rub GI/Abdominal: Normal Bowel Sounds, Soft, Non-Tender, No Organomegaly, No Distention, No Abnormal Bruit, No Mass Back Exam: Normal Inspection, Full Range of Motion, NT Extremities: Normal Range of Motion, No Pedal Edema, Normal Capillary Refill, Joint Swelling, Other (pain to posterior aspect of left knee) Neurological: Alert, Oriented, CN II-XII Intact, Normal Cognition, Normal Gait, Normal Reflexes, No Motor/Sensory Deficits Psychiatric: Normal Affect, Normal Mood Skin Exam: Warm, Dry, Intact, Normal Color, No Rash Lymphatic: No Adenopathy Course - Orders/Labs/Meds Orders: Active Orders 24 hr Category Date Time Status Immobilizer [RC] ASDIRECTED Care 12/03/18 03:14 Active Knee 3V Lt [CR] Stat Exams 12/03/18 02:36 Taken Meds: Medications Discontinued Medications Generic Name Dose Route Start Last Admin Trade Name Lissy PRN Reason Stop Dose Admin Ketorolac Tromethamine 60 mg 12/03/18 02:36 12/03/18 03:14 Toradol IM 12/03/18 02:37 60 mg ONETIME ONE Administration - Radiology Interpretation Free Text/Narrative:: Left knee- NAD Departure - Departure Time of Disposition: 03:59 Disposition: Home, Self-Care 01 Condition: Good Clinical Impression: Knee pain, left Qualifiers: Chronicity: acute Qualified Code(s): M25.562 - Pain in left knee - Discharge Information Instructions: Knee Pain, Adult, Escobedo Cyst Forms: ED Department Discharge Additional Instructions: 1. discharge home 2. rest/ice/immobilizer/crutches 3. motrin 800mg PO Q8 4. follow up with PCP for further evaluation and treatment 5. return to ER for worsening symptoms - My Orders Last 24 Hours: My Active Orders 12/03/18 02:36 Knee 3V Lt [CR] Stat 12/03/18 03:14 Immobilizer [RC] ASDIRECTED - Assessment/Plan Last 24 Hours: My Active Orders 12/03/18 02:36 Knee 3V Lt [CR] Stat 12/03/18 03:14 Immobilizer [RC] ASDIRECTED Assessment:: 1. left knee pain- probable bakers cyst Plan: 1. discharge home 2. rest/ice/immobilizer/crutches 3. motrin 800mg PO Q8 4. follow up with PCP for further evaluation and treatment 5. return to ER for worsening symptoms
[2018-12-03] MEDS ORDERED: Ketorolac 60 MG/2 ML SDV IM ONE (02:36)
--- NOTE | 2018-12-03 05:23 | CR ---
[id number] RAD/RAD Knee Left 3V Exam: RAD Knee Left 3V Indication:LEFT KNEE PAIN Comparison: No prior imaging for comparison. Discussion: No significant osseous or soft tissue abnormality. Impression: Negative examination of the knee. Arden Owens MD 12/03/18 0522 Thank you for allowing us to participate in the care of your patient.
[2018-12-03 08:35] VITALS: BP 141/76
== END 2018-12-03 03:45 | disposition home or self-care (01) ==
LOC: KA.ED 01:38
DX: M25.562 Pain in left knee (principal); Z88.1 Allergy status to other antibiotic agents
CPT/HCPCS: 73562; 96372; 99283; J1885

== ENCOUNTER 2018-12-11 04:08 | Emergency (ER) | payer SELFPAY ==
[2018-12-11] MEDS: diphenhydrAMINE 25 MG Cap PO ONE (04:20)
[2018-12-11 04:33] VITALS: BP 142/80
--- NOTE | 2018-12-11 04:48 | EDM.PDOC ---
ED HPI GENERAL MEDICAL PROBLEM - General Chief Complaint: General Stated Complaint: ? allergic reaction Time Seen by Provider: 12/11/18 04:30 Source of Information: Reports: Patient History Limitations: Reports: No Limitations - History of Present Illness INITIAL COMMENTS - FREE TEXT/NARRATIVE: Patient presents with sensations of dyspnea, throat and tongue swelling, lip tingling. This started 3 hours ago at 0130. She thinks she is having a reaction to Bactrim which she has been taking for 4 days for UTI. She took her last dose (8th dose overall) at 11:00 pm and noticed symptoms 2.5 hours later. She denies rash. She hasn't taken anything for it. Since being diagnosed with UTI she has been drinking lots of water. 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: Other Medication(s) Other Treatments FRONT OF HOUSE MANAGER: xanax - Related Data Allergies Allergy/AdvReac Type Severity Reaction Status Date / Time amoxicillin [Amoxicillin] Allergy Severe Anaphylactic Verified 12/11/18 04:22 Shock Home Meds: Home Meds ALPRAZolam [Alprazolam] 5 mg PO Q6HR PRN 12/11/18 [History] Cyclobenzaprine [Flexeril] 10 mg PO TID PRN 12/11/18 [History] Sulfamethoxazole/Trimethoprim [Sulfamethoxazole-Tmp Ds Tablet] 1 tab PO BID [History] Past Medical History - Past Health History Medical/Surgical History: Denies Medical/Surgical History Other Cardiovascular History: Peripheral artery disease Respiratory History: Reports: Other (See Below) 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: smoker 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: Musculoskeletal History: Reports: Fracture Psychiatric History: Reports: Anxiety, Panic Attack - Infectious Disease History Infectious Disease History: Reports: Chicken Pox - Past Surgical History HEENT Surgical History: Reports: Oral Surgery Cardiovascular Surgical History: Reports: None Respiratory Surgical History: Reports: None Musculoskeletal Surgical History: Reports: None Social & Family History - Family History Family Medical History: Noncontributory Cardiac: Reports: Other (See Below) Other Cardiac Family History: reports has family has cardiac issues - Caffeine Use Caffeine Use: Reports: Coffee Caffeine Use Comment: did not ask - Living Situation & Occupation Living situation: Reports: Single, with Significant Other Occupation: Employed ED ROS GENERAL - Review of Systems Review Of Systems: See Below Constitutional: Denies: Fever, Chills, Malaise, Weakness HEENT: Reports: Throat Pain (scratchy and hoarse she says), Throat Swelling. Denies: Ear Pain, Vision Change Respiratory: Reports: Shortness of Breath. Denies: Wheezing, Cough Cardiovascular: Denies: Chest Pain, Edema, Lightheadedness, Syncope Endocrine: Reports: No Symptoms GI/Abdominal: Reports: Abdominal Pain (she still has some pain over bladder and left flank that is subsiding, from UTI.). Denies: Diarrhea, Vomiting : Reports: Flank Pain, Hematuria (had microscopic on UA 4 days ago.). Denies : Dysuria Musculoskeletal: Reports: No Symptoms Skin: Reports: Pruritis (she has had a little sporadic itching for the past two days). Denies: Cyanosis, Jaundice, Mottled, Pallor, Diaphoresis, Rash, Erythema Neurological: Denies: Confusion, Dizziness, Seizure, Syncope, Trouble Speaking, Weakness Psychiatric: Reports: Anxiety. Denies: Agitation, Confusion ED EXAM, GENERAL - Physical Exam Exam: See Below Exam Limited By: No Limitations General Appearance: Alert, WD/WN, No Apparent Distress Eye Exam: Bilateral Eye: EOMI, Normal Inspection, PERRL Ears: Normal External Exam, Hearing Grossly Normal Nose: Normal Inspection, No Blood Throat/Mouth: Normal Inspection, Normal Lips, Normal Teeth, Normal Gums, Normal Oropharynx, Normal Voice, No Airway Compromise Head: Atraumatic, Normocephalic Neck: Normal Inspection, Supple, Non-Tender, Full Range of Motion. No: Lymphadenopathy (L), Lymphadenopathy (R) Respiratory/Chest: No Respiratory Distress, Lungs Clear, Normal Breath Sounds, No Accessory Muscle Use. No: Crackles, Rales, Rhonchi, Wheezing, Stridor, Accessory Muscle Use Cardiovascular: Regular Rate, Rhythm, No Murmur GI/Abdominal: Soft Back Exam: CVA Tenderness (L) (slight). No: CVA Tenderness (R) Extremities: Normal Inspection, Normal Range of Motion Neurological: Alert, Oriented, Normal Cognition, No Motor/Sensory Deficits Psychiatric: Normal Affect, Normal Mood, Anxious Skin Exam: Warm, Dry, Intact, Normal Color, No Rash Course - Vital Signs Last Recorded V/S: Last Vital Signs Temp 97.1 F 12/11/18 04:32 Pulse 88 12/11/18 04:32 Resp 20 12/11/18 04:32 BP 142/80 H 12/11/18 04:32 Pulse Ox 100 12/11/18 04:32 - Orders/Labs/Meds Meds: Medications Discontinued Medications Generic Name Dose Route Start Last Admin Trade Name Lissy PRN Reason Stop Dose Admin Diphenhydramine HCl 25 mg 12/11/18 04:17 12/11/18 04:20 Benadryl PO 12/11/18 04:18 25 mg ONETIME ONE Administration Diphenhydramine HCl Confirm 12/11/18 04:19 Benadryl Administered 12/11/18 04:20 Dose 25 mg .ROUTE .STK-MED ONE Methylprednisolone Sodium Succinate 125 mg 12/11/18 04:42 Solu-Medrol IVPUSH 12/11/18 04:43 ONETIME ONE - Re-Assessments/Exams Free Text/Narrative Re-Assessment/Exam: 12/11/18 05:28 Patient got a text that a friend needs a ride to work at 0540 this morning and wants to leave. She says her throat feels about 25% improved since the Solu- medrol was administered. She was also given Benadryl 25 po but no epi. During the ER course I observed patient drinking water without difficulty and has had normal speech throughout. We discussed findings and expectations and I feel she is okay to leave at this point. We discussed that we can observe her longer and signs/symptoms that would warrant return to ER. She wants to go now and is discharged to home in stable condition without dyspnea or drowsiness. Departure - Departure Time of Disposition: 05:23 Disposition: Home, Self-Care 01 Condition: Good Clinical Impression: Reaction, drug, adverse Qualifiers: Encounter type: initial encounter Qualified Code(s): T50.905A - Adverse effect of unspecified drugs, medicaments and biological substances, initial encounter - Discharge Information Instructions: Drug Allergy, [id number] Additional Instructions: 1. Drink 8 cups of water daily. 2. Avoid taking any Sulfa containing medications until you discuss this further with your doctor. 3. Follow up with your doctor on Wednesday to see if you need further antibiotic treatment for your UTI. 4. Return to ER if you have problems breathing or worsening throat swelling.
[2018-12-11] MEDS: methylPREDNISolone Sodium Succinate 125 MG/2 ML SDV IVPUSH ONE (04:54)
[2018-12-11] MEDS: diphenhydrAMINE 25 MG Cap ONE (04:54)
== END 2018-12-11 05:31 | disposition home or self-care (01) ==
LOC: KA.ED 04:08
DX: R06.00 Dyspnea, unspecified (principal); T50.905A Adverse effect of unspecified drugs, medicaments and biological substances, initial encounter; F41.9 Anxiety disorder, unspecified; Z79.899 Other long term (current) drug therapy; Z88.1 Allergy status to other antibiotic agents
CPT/HCPCS: 96374; 99283; 99283-25; A9270-GY; J2930

== ENCOUNTER 2018-12-18 16:24 | Emergency (ER) | payer SELFPAY ==
[2018-12-18 16:38] VITALS: BP 141/81
[2018-12-18] MEDS ORDERED: Ketorolac 30 MG/ML SDV IM ONE (17:28)
[2018-12-18 17:55] LABS: ANION GAP 13.3 mmol/L (5-15); CHLORIDE,CL 102 mmol/L (98-115); SODIUM,NA 141 mmol/L (136-145)
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
== END 2018-12-18 18:25 | disposition home or self-care (01) ==
LOC: KA.ED 16:24
DX: R10.9 Unspecified abdominal pain (principal); Z88.1 Allergy status to other antibiotic agents; Z88.2 Allergy status to sulfonamides; Z79.899 Other long term (current) drug therapy
CPT/HCPCS: 36415; 80048; 81001; 81025; 85025; 96372; 99284; J1885; 99283

== ENCOUNTER 2019-02-15 22:54 | Emergency (ER) | payer SELFPAY ==
[2019-02-15 22:57] VITALS: BP 128/76
--- NOTE | 2019-02-15 23:38 | EDM.PDOC ---
ED HPI GENERAL MEDICAL PROBLEM - General Chief Complaint: Lower Extremity Injury/Pain Stated Complaint: Right foot pain secondary to blunt trauma Time Seen by Provider: 02/15/19 23:27 Source of Information: Reports: Patient History Limitations: Reports: No Limitations - History of Present Illness Onset: Today Onset Date: 02/15/19 Onset Time: 21:00 Duration: Hour(s): Location: Reports: Lower Extremity, Right Quality: Reports: Ache Severity: Mild Improves with: Reports: None Worsens with: Reports: Movement Context: Reports: Trauma (Stepped on by horse) Associated Symptoms: Reports: No Other Symptoms Right Feet Pain Score (Numeric/FACES): 7 - Related Data Allergies Allergy/AdvReac Type Severity Reaction Status Date / Time amoxicillin [Amoxicillin] Allergy Severe Anaphylactic Verified 02/15/19 22:55 Shock sulfamethoxazole Allergy Itching Verified 02/15/19 22:55 [From Bactrim] trimethoprim [From Bactrim] Allergy Itching Verified 02/15/19 22:55 Home Meds: Home Meds ALPRAZolam [Alprazolam] 0.5 mg PO Q6HR PRN 12/11/18 [History] Cyclobenzaprine [Flexeril] 10 mg PO TID PRN 12/11/18 [History] Past Medical History - Past Health History Medical/Surgical History: Denies Medical/Surgical History Cardiovascular History: Reports: Other (See Below) Other Cardiovascular History: Peripheral artery disease Respiratory History: Reports: Other (See Below) 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: smoker Gastrointestinal History: Reports: Chronic Constipation Other Genitourinary History: recent UTI [employer]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: Musculoskeletal History: Reports: Fracture Psychiatric History: Reports: Anxiety, Panic Attack - Infectious Disease History Infectious Disease History: Reports: Chicken Pox - Past Surgical History Head Surgeries/Procedures: Reports: None HEENT Surgical History: Reports: Oral Surgery, Other (See Below) Other HEENT Surgeries/Procedures: widom tooth pulled Cardiovascular Surgical History: Reports: None Respiratory Surgical History: Reports: None GI Surgical History: Reports: None Musculoskeletal Surgical History: Reports: None Social & Family History - Family History Family Medical History: Noncontributory Cardiac: Reports: Other (See Below) Other Cardiac Family History: reports has family has cardiac issues - Tobacco Use Smoking Status *Q: Current Every Day Smoker Years of Tobacco use: 9 Packs/Tins Daily: 0.5 - Caffeine Use Caffeine Use: Reports: Coffee Caffeine Use Comment: did not ask - Recreational Drug Use Recreational Drug Use: No - Living Situation & Occupation Living situation: Reports: Single, with Significant Other Occupation: Employed Review of Systems - Review of Systems Review Of Systems: ROS reveals no pertinent complaints other than HPI. Constitutional: Reports: No Symptoms Eyes: Reports: No Symptoms Ears: Reports: No Symptoms Nose: Reports: No Symptoms Mouth/Throat: Reports: No Symptoms Respiratory: Reports: No Symptoms Cardiovascular: Reports: No Symptoms GI/Abdominal: Reports: No Symptoms Genitourinary: Reports: No Symptoms Musculoskeletal: Reports: Foot Pain (Right) Skin: Reports: No Symptoms Neurological: Reports: No Symptoms Psychiatric: Reports: No Symptoms ED EXAM, GENERAL - Physical Exam Exam: See Below Exam Limited By: No Limitations General Appearance: Alert, WD/WN, No Apparent Distress Throat/Mouth: Normal Inspection, Normal Oropharynx, No Airway Compromise Head: Atraumatic, Normocephalic Neck: Normal Inspection Respiratory/Chest: No Respiratory Distress Back Exam: Normal Inspection Extremities: Other (Right foot dorsal aspect with mild erythema and ecchymosis at the distal metatarsals. No proximal tib-fib, ankle, or toenail involvement) Neurological: Alert, Oriented, Normal Cognition Psychiatric: Normal Affect, Normal Mood Skin Exam: Warm, Dry, Intact, Normal Color, No Rash Course - Vital Signs Last Recorded V/S: Last Vital Signs Temp 97.6 F 02/15/19 22:55 Pulse 93 02/15/19 22:55 Resp 14 02/15/19 22:55 BP 128/76 02/15/19 22:55 Pulse Ox 96 02/15/19 22:55 - Orders/Labs/Meds Orders: Active Orders 24 hr Category Date Time Status Foot Comp Min 3V Rt [CR] Stat Exams 02/15/19 23:10 Ordered - Radiology Interpretation Free Text/Narrative:: X-ray right foot shows no acute fracture or dislocation Departure - Departure Time of Disposition: 23:40 Disposition: Home, Self-Care 01 Condition: Good Clinical Impression: Foot contusion Qualifiers: Encounter type: initial encounter Laterality: right Qualified Code(s): S90.31XA - Contusion of right foot, initial encounter - Discharge Information Instructions: Foot Contusion, [id number] Referrals: PCP,Unobtain [Primary Care Provider] - Additional Instructions: Follow-up with PCP in 2-3 days. Return to emergency department sooner if symptoms continue or worsen. Limit ambulation, elevate foot, use ice and anti- inflammatories as required. - My Orders Last 24 Hours: My Active Orders 02/15/19 23:10 Foot Comp Min 3V Rt [CR] Stat - Assessment/Plan Last 24 Hours: My Active Orders 02/15/19 23:10 Foot Comp Min 3V Rt [CR] Stat Assessment:: Right foot contusion Plan: Follow-up with PCP in 2-3 days
[2019-02-15] MEDS ORDERED: Acetaminophen/HYDROcodone 325-10 MG Tab PO ONE (23:45)
--- NOTE | 2019-02-16 07:49 | CR ---
[id number] RAD/RAD Foot Right 3V Min EXAM: RAD Foot Right 3V Min CLINICAL DATA: TRAUMA COMPARISON: CORRELATION IS MADE WITH THE EXAM OF NOVEMBER 10, 2016. FINDINGS: No fracture or dislocation is seen. There is no radiopaque foreign body in the soft tissues. There is no air in the soft tissues. There is no cortical thickening or periosteal reaction either. IMPRESSION: NEGATIVE PLAIN FILM EXAM. Jayden Thorne MD 02/16/19 0748 Thank you for allowing us to participate in the care of your patient.
== END 2019-02-15 23:55 | disposition home or self-care (01) ==
LOC: KA.ED 22:54
DX: S90.31XA Contusion of right foot, initial encounter (principal); F17.210 Nicotine dependence, cigarettes, uncomplicated; Z79.899 Other long term (current) drug therapy; Z88.1 Allergy status to other antibiotic agents; Z88.2 Allergy status to sulfonamides; W55.19XA Other contact with horse, initial encounter
CPT/HCPCS: 73630-RT; 99283; 99283-25; A9270-GY

== ENCOUNTER 2019-03-09 21:07 | Emergency (ER) | payer SELFPAY ==
[2019-03-09] MEDS ORDERED: LORazepam 2 MG/ML SDV IVPUSH ONE (21:48)
--- NOTE | 2019-03-09 21:53 | EDM.PDOC ---
ED HPI GENERAL MEDICAL PROBLEM - General Chief Complaint: General Stated Complaint: Panic attack Time Seen by Provider: 03/09/19 21:30 Source of Information: Reports: Patient History Limitations: Reports: No Limitations - History of Present Illness INITIAL COMMENTS - FREE TEXT/NARRATIVE: 38 YO WF with PMH of anxiety/panic attacks presents to ER with uncontrolled anxiety attack. Pt reports she hasn't been sleeping for the past 10 days. Pt reports she was driving home today and started to feel an axiety attack come on and didn't have her medication with her. Pt states by the time she got home she was having a full blown anxiety attack. Pt took her medication and took a warm bath but didn't feel any better prompting ER visit. Pt denies chest pain, but states she feels mild shortness of breath. Pt reports this is a typical anxiety attack for her but is frustrated because her medication isn't working this time. 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) - Related Data Allergies Allergy/AdvReac Type Severity Reaction Status Date / Time amoxicillin [Amoxicillin] Allergy Severe Anaphylactic Verified 03/09/19 21:08 Shock sulfamethoxazole Allergy Itching Verified 03/09/19 21:08 [From Bactrim] trimethoprim [From Bactrim] Allergy Itching Verified 03/09/19 21:08 Home Meds: Home Meds ALPRAZolam [Alprazolam] 0.5 mg PO Q6HR PRN 12/11/18 [History] Cyclobenzaprine [Flexeril] 10 mg PO TID PRN 12/11/18 [History] Past Medical History - Past Health History Medical/Surgical History: Denies Medical/Surgical History Cardiovascular History: Reports: Other (See Below) Other Cardiovascular History: Peripheral artery disease Respiratory History: Reports: Other (See Below) 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: smoker Gastrointestinal History: Reports: Chronic Constipation Other Genitourinary History: recent UTI [employer]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: Musculoskeletal History: Reports: Fracture Psychiatric History: Reports: Anxiety, Panic Attack - Infectious Disease History Infectious Disease History: Reports: Chicken Pox - Past Surgical History Head Surgeries/Procedures: Reports: None HEENT Surgical History: Reports: Oral Surgery, Other (See Below) Other HEENT Surgeries/Procedures: widom tooth pulled Cardiovascular Surgical History: Reports: None Respiratory Surgical History: Reports: None GI Surgical History: Reports: None Musculoskeletal Surgical History: Reports: None Social & Family History - Family History Family Medical History: Noncontributory Cardiac: Reports: Other (See Below) Other Cardiac Family History: reports has family has cardiac issues - Tobacco Use Smoking Status *Q: Current Every Day Smoker Years of Tobacco use: 10 Packs/Tins Daily: 0.5 - Caffeine Use Caffeine Use: Reports: Coffee Caffeine Use Comment: did not ask - Recreational Drug Use Recreational Drug Use: No - Living Situation & Occupation Living situation: Reports: Single, with Significant Other Occupation: Employed ED ROS GENERAL - Review of Systems Review Of Systems: See Below Constitutional: Reports: No Symptoms HEENT: Reports: No Symptoms Respiratory: Reports: Shortness of Breath Cardiovascular: Reports: No Symptoms Endocrine: Reports: No Symptoms GI/Abdominal: Reports: No Symptoms : Reports: No Symptoms Musculoskeletal: Reports: No Symptoms Skin: Reports: No Symptoms Neurological: Reports: No Symptoms Psychiatric: Reports: No Symptoms Hematologic/Lymphatic: Reports: No Symptoms Immunologic: Reports: No Symptoms ED EXAM, GENERAL - Physical Exam Exam: See Below Exam Limited By: No Limitations General Appearance: Alert, WD/WN, Mild Distress Eye Exam: Bilateral Eye: PERRL Throat/Mouth: Normal Inspection, Normal Lips, Normal Teeth, Normal Gums, Normal Oropharynx, Normal Voice, No Airway Compromise Head: Atraumatic, Normocephalic Neck: Normal Inspection, Supple, Non-Tender, Full Range of Motion Respiratory/Chest: No Respiratory Distress, Lungs Clear, Normal Breath Sounds, No Accessory Muscle Use, Chest Non-Tender Cardiovascular: Normal Peripheral Pulses, Regular Rate, Rhythm, No Edema, No Gallop, No JVD, No Murmur, No Rub GI/Abdominal: Normal Bowel Sounds, Soft, Non-Tender, No Organomegaly, No Distention, No Abnormal Bruit, No Mass Back Exam: Normal Inspection, Full Range of Motion, NT Extremities: Normal Inspection, Normal Range of Motion, Non-Tender, Normal Capillary Refill, No Pedal Edema Neurological: Alert, Oriented, CN II-XII Intact, Normal Cognition, Normal Gait, Normal Reflexes, No Motor/Sensory Deficits Psychiatric: Normal Affect, Anxious. No: Depressed Mood, Flat Affect, Tearful Skin Exam: Warm, Dry, Intact, Normal Color, No Rash Lymphatic: No Adenopathy EKG INTERPRETATION EKG Date: 03/09/19 Time: 21:23 Rhythm: NSR Rate (Beats/Min): 96 [place]: Normal P-Wave: Present QRS: Normal ST-T: Normal QT: Normal Comparison: No Change Course - Vital Signs Last Recorded V/S: Last Vital Signs Temp 37.1 C 03/09/19 21:09 Pulse 104 H 03/09/19 21:09 Resp 20 03/09/19 21:09 BP 150/73 H 03/09/19 21:09 Pulse Ox 99 03/09/19 21:09 - Orders/Labs/Meds Meds: Medications Discontinued Medications Generic Name Dose Route Start Last Admin Trade Name Lissy PRN Reason Stop Dose Admin Lorazepam 1 mg 03/09/19 21:48 03/09/19 22:10 Ativan IVPUSH 03/09/19 21:49 1 mg ONETIME ONE Administration Departure - Departure Time of Disposition: 22:36 Disposition: Home, Self-Care 01 Condition: Good Clinical Impression: Panic attack - Discharge Information Instructions: Panic Attack, Living With Anxiety Referrals: PCP,None [Primary Care Provider] - Forms: ED Department Discharge Additional Instructions: 1. discharge home 2. consider antidepressant with antianxiety component (zoloft) per PCP 3. good sleep hygiene 4. avoid stimulants 5. follow up with PCP for further management 6. return to ER for worsening symptoms - Assessment/Plan Assessment:: 1. anxiety/panic disorder Plan: 1. discharge home 2. consider antidepressant with antianxiety component (zoloft) per PCP 3. good sleep hygiene 4. avoid stimulants 5. follow up with PCP for further management 6. return to ER for worsening symptoms
[2019-03-09 22:47] VITALS: BP 146/82
== END 2019-03-09 22:45 | disposition home or self-care (01) ==
LOC: KA.ED 21:07
DX: F41.0 Panic disorder [episodic paroxysmal anxiety] (principal); F17.210 Nicotine dependence, cigarettes, uncomplicated; Z79.899 Other long term (current) drug therapy; Z88.2 Allergy status to sulfonamides; Z88.1 Allergy status to other antibiotic agents
CPT/HCPCS: 93005; 96374; 99283-25; 99284; J2060

== ENCOUNTER 2019-04-03 22:30 | Emergency (ER) | payer SELFPAY ==
[2019-04-03 22:45] VITALS: BP 144/79; PULSE 78
--- NOTE | 2019-04-03 23:18 | EDM.PDOC ---
ED HPI GENERAL MEDICAL PROBLEM - General Chief Complaint: Respiratory Problem Stated Complaint: SOB Time Seen by Provider: 04/03/19 22:52 Source of Information: Reports: Patient History Limitations: Reports: No Limitations - History of Present Illness INITIAL COMMENTS - FREE TEXT/NARRATIVE: Patient presents with dyspnea. 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 She is concerned that she may have water in her lungs since an incident two days ago. She was swimming in a pool and ended up inhaling a gasp of pool water. She immediately came up and cough, spit and sputtered a bunch of water out of her mouth and nose and then continued swimming without problems. She is wondering if she could still have water in her lungs and could be at risk for "dry drowning". No fever but easily fatigued and dyspneic the last two days. - Related Data Allergies Allergy/AdvReac Type Severity Reaction Status Date / Time amoxicillin [Amoxicillin] Allergy Severe Anaphylactic Verified 04/03/19 22:43 Shock sulfamethoxazole Allergy Itching Verified 04/03/19 22:43 [From Bactrim] trimethoprim [From Bactrim] Allergy Itching Verified 04/03/19 22:43 Home Meds: Home Meds ALPRAZolam [Alprazolam] 0.5 mg PO Q6HR PRN 12/11/18 [History] Past Medical History - Past Health History Medical/Surgical History: Denies Medical/Surgical History Cardiovascular History: Reports: Other (See Below) Other Cardiovascular History: Peripheral artery disease Respiratory History: Reports: Other (See Below) 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: smoker Gastrointestinal History: Reports: Chronic Constipation 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: Musculoskeletal History: Reports: Fracture Psychiatric History: Reports: Anxiety, Panic Attack - Infectious Disease History Infectious Disease History: Reports: Chicken Pox - Past Surgical History Head Surgeries/Procedures: Reports: None HEENT Surgical History: Reports: Oral Surgery, Other (See Below) Other HEENT Surgeries/Procedures: widom tooth pulled Cardiovascular Surgical History: Reports: None Respiratory Surgical History: Reports: None GI Surgical History: Reports: None Musculoskeletal Surgical History: Reports: None Social & Family History - Family History Family Medical History: Noncontributory Cardiac: Reports: Other (See Below) Other Cardiac Family History: reports has family has cardiac issues - Tobacco Use Smoking Status *Q: Current Every Day Smoker Years of Tobacco use: 16 Packs/Tins Daily: 0.5 - Caffeine Use Caffeine Use: Reports: Coffee Caffeine Use Comment: did not ask - Living Situation & Occupation Living situation: Reports: Single, with Significant Other Occupation: Employed ED ROS GENERAL - Review of Systems Review Of Systems: See Below Constitutional: Denies: Fever, Chills, Malaise HEENT: Denies: Ear Pain, Throat Pain, Vision Change Respiratory: Reports: Shortness of Breath (brief, intermittent episodes). Denies: Cough Cardiovascular: Denies: Chest Pain, Lightheadedness, Syncope Endocrine: Reports: No Symptoms GI/Abdominal: Denies: Abdominal Pain, Vomiting : Reports: No Symptoms Musculoskeletal: Reports: No Symptoms Skin: Denies: Cyanosis, Jaundice, Mottled, Pallor, Diaphoresis Neurological: Denies: Confusion, Dizziness, Seizure, Syncope, Trouble Speaking, Difficulty Walking Psychiatric: Reports: Anxiety (chronic). Denies: Agitation, Confusion ED EXAM, GENERAL - Physical Exam Exam: See Below Exam Limited By: No Limitations General Appearance: Alert, WD/WN, No Apparent Distress Eye Exam: Bilateral Eye: EOMI, Normal Inspection, PERRL Ears: Normal External Exam, Hearing Grossly Normal Nose: Normal Inspection, No Blood Throat/Mouth: Normal Inspection, Normal Lips, Normal Teeth, Normal Gums, Normal Oropharynx, Normal Voice, No Airway Compromise Head: Atraumatic, Normocephalic Neck: Normal Inspection, Full Range of Motion Respiratory/Chest: No Respiratory Distress, Lungs Clear, Normal Breath Sounds, No Accessory Muscle Use. No: Crackles, Rales, Rhonchi, Wheezing, Stridor Cardiovascular: Regular Rate, Rhythm, No Murmur Back Exam: Normal Inspection, Full Range of Motion. No: CVA Tenderness (L), CVA Tenderness (R) Extremities: Normal Inspection, Normal Range of Motion, Non-Tender Neurological: Alert, Oriented, Normal Cognition, No Motor/Sensory Deficits Psychiatric: Normal Affect, Anxious Skin Exam: Warm, Dry, Intact, Normal Color, No Rash Course - Vital Signs Last Recorded V/S: Last Vital Signs Temp 98.9 F 04/03/19 22:35 Pulse 78 04/03/19 22:35 Resp 18 04/03/19 22:35 BP 144/79 H 04/03/19 22:35 Pulse Ox 97 04/03/19 22:35 - Re-Assessments/Exams Free Text/Narrative Re-Assessment/Exam: 04/03/19 23:20 I discussed findings with patient. I don't find anything concerning with her breathing and vitals are good. I advised follow up if things worsen. Patient okay with this and is discharged to home in stable condition. Departure - Departure Time of Disposition: 23:09 Disposition: Home, Self-Care 01 Condition: Good Clinical Impression: Paroxysmal dyspnea - Discharge Information Additional Instructions: 1. Drink 8 cups of water daily. 2. Follow up with your PCP if you experience worsening of symptoms.
== END 2019-04-03 23:00 | disposition home or self-care (01) ==
LOC: KA.ED 22:30
DX: R06.00 Dyspnea, unspecified (principal); F17.210 Nicotine dependence, cigarettes, uncomplicated; Z88.1 Allergy status to other antibiotic agents; Z88.2 Allergy status to sulfonamides
CPT/HCPCS: 99283; 99284

== ENCOUNTER 2019-04-07 20:31 | Emergency (ER) | payer OTHER ==
[2019-04-07 20:43] VITALS: BP 151/81; PULSE 89
[2019-04-07] MEDS ORDERED: Albuterol 0.083% 2.5 MG/3 ML Neb Soln NEB ONE (20:52)
--- NOTE | 2019-04-07 22:20 | EDM.PDOC ---
ED HPI GENERAL MEDICAL PROBLEM - General Chief Complaint: General Stated Complaint: SOB, cough Time Seen by Provider: 04/07/19 20:50 Source of Information: Reports: Patient History Limitations: Reports: No Limitations - History of Present Illness INITIAL COMMENTS - FREE TEXT/NARRATIVE: 38-year-old female presents with complaints of persistent cough lasted over a week. She was seen in emergency room on Wednesday and was sent home I recommended a decongestant. She had follow-up with her primary care and Wednesday did a chest x-ray and was started on a Z-Lauri. Her symptoms began after she went to the [place] [employer] [place] earlier last week and went down a slide which she had a bunch of water that she felt she aspirated. She now reports that the cough and sputum have been still productive and she feels some shortness of breath. She is not febrile she is talking without any labored breathing or difficulty. Not tachycardic. She denies any sinus congestion. Fullness in her left ear. No sore throat. She has had many visits to the emergency room in the past. Onset: Gradual Duration: Day(s):, Constant Location: Reports: Chest Quality: Reports: Ache Severity: Mild Improves with: Reports: None Worsens with: Reports: None - Related Data Allergies Allergy/AdvReac Type Severity Reaction Status Date / Time amoxicillin [Amoxicillin] Allergy Severe Anaphylactic Verified 04/07/19 20:58 Shock sulfamethoxazole Allergy Itching Verified 04/07/19 20:58 [From Bactrim] trimethoprim [From Bactrim] Allergy Itching Verified 04/07/19 20:58 Home Meds: Home Meds ALPRAZolam [Alprazolam] 0.5 mg PO Q6HR PRN 12/11/18 [History] Azithromycin 500 mg PO DAILY 04/07/19 [History] Past Medical History - Past Health History Medical/Surgical History: Denies Medical/Surgical History Cardiovascular History: Reports: Other (See Below) Other Cardiovascular History: Peripheral artery disease Respiratory History: Reports: Other (See Below) 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: quit smoking 03/30/2019 Gastrointestinal History: Reports: Chronic Constipation Other Genitourinary History: 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: Musculoskeletal History: Reports: Fracture Psychiatric History: Reports: Anxiety, Panic Attack - Infectious Disease History Infectious Disease History: Reports: Chicken Pox - Past Surgical History Head Surgeries/Procedures: Reports: None HEENT Surgical History: Reports: Oral Surgery, Other (See Below) Other HEENT Surgeries/Procedures: wisdom tooth pulled Cardiovascular Surgical History: Reports: None Respiratory Surgical History: Reports: None GI Surgical History: Reports: None Musculoskeletal Surgical History: Reports: None Social & Family History - Family History Family Medical History: Noncontributory Cardiac: Reports: Other (See Below) Other Cardiac Family History: reports has family has cardiac issues - Tobacco Use Smoking Status *Q: Former Smoker Used Tobacco, but Quit: Yes Month/Year Tobacco Last Used: 03/2019 - Caffeine Use Caffeine Use: Reports: Coffee Caffeine Use Comment: did not ask - Recreational Drug Use Recreational Drug Use: No - Living Situation & Occupation Living situation: Reports: Single, with Significant Other Occupation: Employed ED ROS GENERAL - Review of Systems Review Of Systems: See Below Constitutional: Denies: Fever, Chills HEENT: Reports: Ear Pain, Throat Pain. Denies: Sinus Problem Respiratory: Reports: Shortness of Breath, Cough, Sputum. Denies: Wheezing Cardiovascular: Denies: Chest Pain, Lightheadedness Endocrine: Reports: No Symptoms GI/Abdominal: Reports: No Symptoms : Reports: No Symptoms Musculoskeletal: Reports: No Symptoms Skin: Denies: Cyanosis, Rash Neurological: Denies: Headache Psychiatric: Reports: Anxiety Hematologic/Lymphatic: Reports: No Symptoms Immunologic: Reports: No Symptoms ED EXAM, GENERAL - Physical Exam Exam: See Below Exam Limited By: No Limitations General Appearance: Alert, WD/WN, No Apparent Distress Eye Exam: Bilateral Eye: EOMI Ears: Normal External Exam, Normal Canal, Hearing Grossly Normal, Normal TMs Nose: Normal Inspection, Normal Mucosa Throat/Mouth: Normal Inspection, Normal Lips, Normal Oropharynx, Normal Voice, No Airway Compromise Head: Atraumatic, Normocephalic Neck: Normal Inspection, Supple, Non-Tender, Full Range of Motion Respiratory/Chest: No Respiratory Distress, Lungs Clear, Normal Breath Sounds Cardiovascular: Normal Peripheral Pulses, Regular Rate, Rhythm, No Rub Back Exam: Normal Inspection Extremities: Normal Inspection Neurological: Alert, Oriented, Normal Cognition, Normal Gait Psychiatric: Normal Affect, Normal Mood Skin Exam: Warm, Dry, Intact, Normal Color, No Rash Lymphatic: No Adenopathy Course - Vital Signs Last Recorded V/S: Last Vital Signs Temp 97.3 F 04/07/19 20:36 Pulse 89 04/07/19 20:55 Resp 16 04/07/19 20:36 BP 151/81 H 04/07/19 20:36 Pulse Ox 98 04/07/19 20:36 - Orders/Labs/Meds Orders: Active Orders 24 hr Category Date Time Status RT Aerosol Therapy [RC] ASDIRECTED Care 04/07/19 20:52 Active Labs: Laboratory Tests 04/07/19 Range/Units 21:34 WBC 8.31 (5.00-10.00) 10^3/uL RBC 4.56 (3.80-5.50) 10^6/uL Hgb 14.4 (12.0-16.0) g/dL Hct 42.2 (37.0-47.0) % MCV 92.5 H (82.0-92.0) fL MCH 31.6 H (27.0-31.0) pg MCHC 34.1 (32.0-36.0) g/dL RDW 11.9 (11.5-14.5) % Plt Count 253 (150-400) 10^3/uL MPV 10.2 (7.4-10.4) fL Immature Gran % (Auto) 0.2 (0.0-5.0) % Neut % (Auto) 45.3 L (50.0-70.0) % Lymph % (Auto) 38.7 (20.0-40.0) % Amelia % (Auto) 11.7 H (2.0-8.0) % Eos % (Auto) 3.5 H (1.0-3.0) % Baso % (Auto) 0.6 (0.0-1.0) % Immature Gran # (Auto) 0.02 (0.00-0.50) 10^3/uL Neut # (Auto) 3.76 (2.50-7.00) 10^3/uL Lymph # (Auto) 3.22 (1.00-4.00) 10^3/uL Amelia # (Auto) 0.97 H (0.10-0.80) 10^3/uL Eos # (Auto) 0.29 (0.10-0.30) 10^3/uL Baso # (Auto) 0.05 (0.00-0.10) 10^3/uL Meds: Medications Discontinued Medications Generic Name Dose Route Start Last Admin Trade Name Freq PRN Reason Stop Dose Admin Albuterol 2.5 mg 04/07/19 20:52 04/07/19 20:55 Proventil Neb Soln NEB 04/07/19 20:53 2.5 mg ONETIME ONE Administration - Re-Assessments/Exams Free Text/Narrative Re-Assessment/Exam: 04/07/19 22:23 Albuterol treatment was given the patient she felt improvement with this. Departure - Departure Time of Disposition: 22:24 Disposition: Home, Self-Care 01 Condition: Good Clinical Impression: Bronchitis - Discharge Information Instructions: Bronchospasm, Adult, [id number] Forms: ED Department Discharge - My Orders Last 24 Hours: My Active Orders 04/07/19 20:52 RT Aerosol Therapy [RC] ASDIRECTED - Assessment/Plan Last 24 Hours: My Active Orders 04/07/19 20:52 RT Aerosol Therapy [RC] ASDIRECTED Assessment:: Bronchitis Plan: 1. Finish antibiotic prescribed by her primary care. 2. Albuterol inhaler treatments 3 times a day when necessary 3. NyQuil during the evening to help for sleep. 4. Follow-up through primary care 7-10 days his symptoms do not improve.
== END 2019-04-07 22:10 | disposition home or self-care (01) ==
LOC: KA.ED 20:31
DX: J40 Bronchitis, not specified as acute or chronic (principal); F41.9 Anxiety disorder, unspecified; Z88.1 Allergy status to other antibiotic agents; Z79.899 Other long term (current) drug therapy; Z87.891 Personal history of nicotine dependence
CPT/HCPCS: 85025; 94640; 99283; 99284; J7613-GY

== ENCOUNTER 2019-06-09 19:44 | Emergency (ER) | payer SELFPAY ==
[2019-06-09 20:21] VITALS: PULSE 88
[2019-06-09] MEDS ORDERED: Lidocaine/EPINEPHrine/Tetracaine Soln 5 ML Each TOP ONE (20:30)
--- NOTE | 2019-06-09 20:48 | EDM.PDOC ---
ED HPI GENERAL MEDICAL PROBLEM - General Chief Complaint: General Stated Complaint: HEMORRHOIDS Time Seen by Provider: 06/09/19 20:15 Source of Information: Reports: Patient History Limitations: Reports: No Limitations - History of Present Illness INITIAL COMMENTS - FREE TEXT/NARRATIVE: Underwent incisional drainage external hemorrhoid yesterday at the [facility]. Today she noticed increased discomfort and "Isn't nearly as bad as prior to the procedure yesterday", but getting worse. Notes large firm lump when wiping or palpating. Has been using showerhead to tepid water irrigation. Noted worsening this afternoon. Significantly worsened after 1700 hrs. Onset: Gradual Duration: Day(s): Location: Reports: Pelvis (Rectal) Quality: Reports: Pressure, Sharp Severity: Severe Improves with: Reports: None Worsens with: Reports: Movement Context: Reports: Other Associated Symptoms: Reports: Other (Constipation) - Related Data Allergies Allergy/AdvReac Type Severity Reaction Status Date / Time amoxicillin [Amoxicillin] Allergy Severe Anaphylactic Verified 06/09/19 20:30 Shock sulfamethoxazole Allergy Itching Verified 06/09/19 20:30 [From Bactrim] trimethoprim [From Bactrim] Allergy Itching Verified 06/09/19 20:30 Home Meds: Home Meds ALPRAZolam [Alprazolam] 0.5 mg PO Q6HR PRN 12/11/18 [History] LORazepam 5 mg PO Q6HR PRN 06/09/19 [History] Past Medical History - Past Health History Medical/Surgical History: Denies Medical/Surgical History Cardiovascular History: Reports: Other (See Below) Other Cardiovascular History: Peripheral artery disease Respiratory History: Reports: Other (See Below) 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: quit smoking 03/30/2019 Gastrointestinal History: Reports: Chronic Constipation, Hemorrhoids ( Incisional drainage yesterday 08 June 2019) Other Genitourinary History: 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: Musculoskeletal History: Reports: Fracture Psychiatric History: Reports: Anxiety, Panic Attack - Infectious Disease History Infectious Disease History: Reports: Chicken Pox - Past Surgical History Head Surgeries/Procedures: Reports: None HEENT Surgical History: Reports: Oral Surgery, Other (See Below) Other HEENT Surgeries/Procedures: wisdom tooth pulled Cardiovascular Surgical History: Reports: None Respiratory Surgical History: Reports: None GI Surgical History: Reports: None Musculoskeletal Surgical History: Reports: None Social & Family History - Family History Family Medical History: Noncontributory Cardiac: Reports: Other (See Below) Other Cardiac Family History: reports has family has cardiac issues - Caffeine Use Caffeine Use: Reports: Coffee Caffeine Use Comment: did not ask - Living Situation & Occupation Living situation: Reports: Single, with Significant Other Occupation: Employed ED ROS GENERAL - Review of Systems Review Of Systems: See Below Constitutional: Reports: No Symptoms. Denies: Fever, Chills HEENT: Reports: No Symptoms Respiratory: Reports: No Symptoms Cardiovascular: Reports: No Symptoms Endocrine: Reports: No Symptoms GI/Abdominal: Reports: Constipation, Other (Rectal pain) : Reports: No Symptoms Musculoskeletal: Reports: No Symptoms Skin: Reports: No Symptoms Neurological: Reports: No Symptoms Psychiatric: Reports: No Symptoms, Anxiety Hematologic/Lymphatic: Reports: No Symptoms Immunologic: Reports: No Symptoms ED EXAM, GENERAL - Physical Exam Exam: See Below Free Text/Narrative:: Alert and oriented in mild painful distress. HEENT is benign Thorax is clear cardiac regular Focused examination to the rectal area shows old skin tags with 1 hard to palpation 5 mm x 8 mm darkened tissue with the consistency of thrombosed external hemorrhoid. No active bleeding or discharge is noted. Discuss the appearance and decision is agreed upon pursue drainage. Please see procedural section. Exam Limited By: No Limitations General Appearance: Alert, WD/WN Respiratory/Chest: No Respiratory Distress ED GENERAL MEDICAL PROCEDURES - Additional/Other Procedure(s) Other (Free Text) Procedure(s): 4% topical lidocaine is placed on 2 x 2's and applied to the area of the thrombosed hemorrhoid. This is repeated 2 with topical anesthetic properties achieved to allow further examination. A very firm palpable thrombosed hemorrhoid with no evidence of discharge or bleeding is noted. We discussed with Cecilia at this time options which she agrees with complete understanding that we will incise and drain with potential for marsupialization VIA dissolving Vicryl thread if phoned beneficial. Betadine swabs 3 are used for diligent cleaning of the area. Consent is obtained with staff and room. Distance of staff member to help traction of the gluteus to allow visualization and procedure. 2% lidocaine with epinephrine was infiltrated into the thrombosed hemorrhoid with some initial discomfort. We'll allow a couple minutes at which time further infiltration of lidocaine for a total of 1 mL with good anesthetic property achieved. #15 scalpel was used to make a 4 mm incision with some stranding blood tissue, with no true clot, and mild fluid drainage with palpation and attempted compression/expression. This is probed with blunt pickup tool and has significant depreciation in size but most notable no firmness after draining. 4-0 Vicryl was used to perform a marsupialization with one stitch that will hopefully keep this open to allow further draining and healing without superficial closure. Tolerates procedure well and dressing was placed over the area. Instructed to continue with [facility] baths and contact if any questions or concerns should develop. Course - Vital Signs Last Recorded V/S: Last Vital Signs Temp 36.8 C 06/09/19 20:20 Pulse 88 06/09/19 20:20 Resp 20 06/09/19 22:17 BP 124/74 06/09/19 22:17 Pulse Ox 95 06/09/19 20:20 - Orders/Labs/Meds Meds: Medications Discontinued Medications Generic Name Dose Route Start Last Admin Trade Name Lissy PRN Reason Stop Dose Admin Lidocaine HCl 3 ml 06/09/19 20:51 06/09/19 20:58 Xylocaine 4% Top Soln MUCMEM 06/09/19 20:52 3 ml ONETIME ONE Administration Lidocaine HCl Confirm 06/09/19 20:52 06/09/19 20:58 Xylocaine 4% Top Soln Administered 06/09/19 20:53 Not Given Dose 50 ml .ROUTE .STK-MED ONE Lidocaine/Epinephrine Confirm 06/09/19 21:43 06/09/19 21:51 Xylocaine-Mpf 2%-Epi 1:200,000 Administered 06/09/19 21:44 20 ml Dose Administration 20 ml .ROUTE .STK-MED ONE Lidocaine/Tetracaine 5 ml 06/09/19 20:30 06/09/19 20:57 Let Soln TOP 06/09/19 20:31 Not Given ONETIME ONE Lorazepam 0.5 mg 06/09/19 21:38 06/09/19 21:49 Ativan PO 06/09/19 21:39 0.5 mg ONETIME ONE Administration Lorazepam Confirm 06/09/19 21:40 06/09/19 21:51 Ativan Administered 06/09/19 21:41 Not Given Dose 0.5 mg .ROUTE .STK-MED ONE Departure - Departure Time of Disposition: 22:24 Disposition: Home, Self-Care 01 Condition: Good Clinical Impression: Thrombosed external hemorrhoid - Discharge Information *PRESCRIPTION DRUG MONITORING PROGRAM REVIEWED*: Not Applicable *COPY OF PRESCRIPTION DRUG MONITORING REPORT IN PATIENT KATIE: Not Applicable Referrals: Siena Barron MD [Primary Care Provider] - Forms: ED Department Discharge Additional Instructions: Continue your prescribed clinic treatment for witch tre and sitz baths sprays. Continue your medications as directed. Consideration for colorectal MD or gastro that perform hemorrhoid banding/ corrections. Return if bleeding continues or worsens, or if pain becomes severe. Avoid constipating foods, increase fluids. - Problem List & Annotations (1) Thrombosed external hemorrhoid SNOMED Code(s): 20419887 Code(s): K64.5 - PERIANAL VENOUS THROMBOSIS Status: Acute Priority: High Current Visit: Yes - Problem List Review Problem List Initiated/Reviewed/Updated: Yes - Assessment/Plan Plan: Continue your prescribed clinic treatment for witch tre and sitz baths sprays. Continue your medications as directed. Consideration for colorectal MD or gastro that perform hemorrhoid banding/ corrections. Return if bleeding continues or worsens, or if pain becomes severe.
[2019-06-09] MEDS ORDERED: Lidocaine 4% Top Soln 50 ML Bottle MUCMEM ONE (20:51)
[2019-06-09] MEDS ORDERED: Lidocaine 4% Top Soln 50 ML Bottle ONE (20:52)
[2019-06-09] MEDS ORDERED: LORazepam 0.5 MG Tab PO ONE (21:38)
[2019-06-09] MEDS ORDERED: LORazepam 0.5 MG Tab ONE (21:40)
[2019-06-09] MEDS ORDERED: Lidocaine 2% with EPINEPHrine 1:200,000 20 ML SDV ONE (21:43)
[2019-06-09] MEDS ORDERED: Lidocaine 2% with EPINEPHrine 1:200,000 20 ML SDV INFILT SCH (21:50)
[2019-06-09 22:18] VITALS: BP 124/74
[2019-06-10] MEDS ORDERED: Lidocaine 2% with EPINEPHrine 1:200,000 20 ML SDV INFILT SCH (02:30)
== END 2019-06-09 22:30 | disposition home or self-care (01) ==
LOC: KA.ED 19:44
DX: K64.5 Perianal venous thrombosis (principal); F41.0 Panic disorder [episodic paroxysmal anxiety]; Z88.1 Allergy status to other antibiotic agents; Z79.899 Other long term (current) drug therapy; Z88.2 Allergy status to sulfonamides
CPT/HCPCS: 46083; 99283; A9270-GY

== ENCOUNTER 2019-07-10 20:32 | Emergency (ER) | payer SELFPAY ==
[2019-07-10 20:57] VITALS: BP 125/64; PULSE 75
--- NOTE | 2019-07-10 21:03 | EDM.PDOC ---
ED HPI GENERAL MEDICAL PROBLEM - General Chief Complaint: Lower Extremity Injury/Pain Stated Complaint: LEFT LEG PAIN Time Seen by Provider: 07/10/19 20:45 Source of Information: Reports: Patient History Limitations: Reports: No Limitations - History of Present Illness INITIAL COMMENTS - FREE TEXT/NARRATIVE: 39 YO WF presents to ER with complaints of left knee pain and swelling and she became concerned she may have a blood clot. Pt has been seen in ER and clinic numerous times for similar and has been diagnosed with a Bakers cyst. Pt was referred to ortho but hasn't followed up because knee discomfort improves on its own. Pt denies use of hormone replacement, no trauma, hasn't been traveling and has no history of blood clots or clotting disorder. Pt denies shortness of breath, palpitations or chest pain. Onset: Today Location: Reports: Lower Extremity, Left Quality: Reports: Ache Severity: Mild Improves with: Reports: Rest Worsens with: Reports: Movement Associated Symptoms: Reports: No Other Symptoms, Shortness of Breath - Related Data Allergies Allergy/AdvReac Type Severity Reaction Status Date / Time amoxicillin [Amoxicillin] Allergy Severe Anaphylactic Verified 07/10/19 20:51 Shock sulfamethoxazole Allergy Itching Verified 07/10/19 20:51 [From Bactrim] trimethoprim [From Bactrim] Allergy Itching Verified 07/10/19 20:51 Home Meds: Home Meds ALPRAZolam [Alprazolam] 0.5 mg PO Q6HR PRN 12/11/18 [History] Past Medical History - Past Health History Medical/Surgical History: Denies Medical/Surgical History Cardiovascular History: Reports: Other (See Below) Other Cardiovascular History: Peripheral artery disease Respiratory History: Reports: Other (See Below) 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: quit smoking 03/30/2019 Gastrointestinal History: Reports: Chronic Constipation, Hemorrhoids ( Incisional drainage yesterday 08 June 2019) Other Gastrointestinal History: hemorrhoid ectomy 06/08/2019 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: Musculoskeletal History: Reports: Fracture Psychiatric History: Reports: Anxiety, Panic Attack - Infectious Disease History Infectious Disease History: Reports: Chicken Pox - Past Surgical History Head Surgeries/Procedures: Reports: None HEENT Surgical History: Reports: Oral Surgery, Other (See Below) Other HEENT Surgeries/Procedures: wisdom tooth pulled Cardiovascular Surgical History: Reports: None Respiratory Surgical History: Reports: None GI Surgical History: Reports: None Musculoskeletal Surgical History: Reports: None Social & Family History - Family History Family Medical History: Noncontributory Cardiac: Reports: Other (See Below) Other Cardiac Family History: reports has family has cardiac issues - Caffeine Use Caffeine Use: Reports: Coffee Caffeine Use Comment: did not ask - Living Situation & Occupation Living situation: Reports: Single, with Significant Other Occupation: Employed Review of Systems - Review of Systems Review Of Systems: See Below Constitutional: Reports: No Symptoms Eyes: Reports: No Symptoms Ears: Reports: No Symptoms Nose: Reports: No Symptoms Mouth/Throat: Reports: No Symptoms Respiratory: Reports: No Symptoms Cardiovascular: Reports: No Symptoms GI/Abdominal: Reports: No Symptoms Genitourinary: Reports: No Symptoms Musculoskeletal: Reports: Leg Pain. Denies: Joint Pain, Joint Swelling Skin: Reports: No Symptoms Neurological: Reports: No Symptoms Psychiatric: Reports: No Symptoms ED EXAM, GENERAL - Physical Exam Exam: See Below Exam Limited By: No Limitations General Appearance: Alert, WD/WN, No Apparent Distress Nose: Normal Inspection, Normal Mucosa, No Blood Throat/Mouth: Normal Inspection, Normal Lips, Normal Teeth, Normal Gums, Normal Oropharynx, Normal Voice, No Airway Compromise Head: Atraumatic, Normocephalic Neck: Normal Inspection, Supple, Non-Tender, Full Range of Motion Respiratory/Chest: No Respiratory Distress, Lungs Clear, Normal Breath Sounds, No Accessory Muscle Use, Chest Non-Tender Cardiovascular: Normal Peripheral Pulses, Regular Rate, Rhythm, No Edema, No Gallop, No JVD, No Murmur, No Rub GI/Abdominal: Normal Bowel Sounds, Soft, Non-Tender, No Organomegaly, No Distention, No Abnormal Bruit, No Mass Back Exam: Normal Inspection, Full Range of Motion, NT Extremities: Normal Inspection, Normal Range of Motion, Non-Tender, Normal Capillary Refill, No Pedal Edema Neurological: Alert, Oriented, CN II-XII Intact, Normal Cognition, Normal Gait, Normal Reflexes, No Motor/Sensory Deficits Psychiatric: Normal Affect, Normal Mood Course - Vital Signs Last Recorded V/S: Last Vital Signs Temp 36.8 C 07/10/19 20:35 Pulse 75 07/10/19 20:35 Resp 18 07/10/19 20:35 BP 125/64 07/10/19 20:35 Pulse Ox 97 07/10/19 20:35 Departure - Departure Time of Disposition: 21:24 Disposition: Home, Self-Care 01 Condition: Good Clinical Impression: Knee pain, left Qualifiers: Chronicity: acute Qualified Code(s): M25.562 - Pain in left knee Escobedo's cyst of knee Qualifiers: Laterality: left Qualified Code(s): M71.22 - Synovial cyst of popliteal space [ Escobedo], left knee - Discharge Information Instructions: Knee Pain, Adult Referrals: Siena Barron MD [Primary Care Provider] - Forms: ED Department Discharge Additional Instructions: 1. discharge home 2. follow up in clinic and consider ortho consult 3. ice and compression to left knee 4. motrin 600mg every 6 hours as needed for pain 5. return to ER for worsening symptoms - Assessment/Plan Assessment:: 1. left knee pain- probably Escobedo's cyst Plan: 1. discharge home 2. follow up in clinic and consider ortho consult 3. ice and compression to left knee 4. motrin 600mg every 6 hours as needed for pain 5. return to ER for worsening symptoms
== END 2019-07-10 21:25 | disposition home or self-care (01) ==
LOC: KA.ED 20:32
DX: M71.22 Synovial cyst of popliteal space [Baker], left knee (principal); F41.9 Anxiety disorder, unspecified; Z87.891 Personal history of nicotine dependence; Z88.0 Allergy status to penicillin; Z88.1 Allergy status to other antibiotic agents; Z88.2 Allergy status to sulfonamides
CPT/HCPCS: 99283

== ENCOUNTER 2019-07-15 20:30 | Emergency (ER) | payer SELFPAY ==
[2019-07-15] MEDS ORDERED: Ondansetron 4 MG/2 ML SDV IVPUSH ONE (20:55)
[2019-07-15] MEDS ORDERED: Ketorolac 30 MG/ML SDV IVPUSH ONE (20:56)
[2019-07-15 21:18] VITALS: BP 116/78; PULSE 77
--- NOTE | 2019-07-15 21:23 | EDM.PDOC ---
ED HPI GENERAL MEDICAL PROBLEM - General Chief Complaint: Headache Stated Complaint: migraine Time Seen by Provider: 07/15/19 21:10 Source of Information: Reports: Patient History Limitations: Reports: No Limitations - History of Present Illness INITIAL COMMENTS - FREE TEXT/NARRATIVE: 39-year-old female presents emergency room with complaints of headache over the last 4 days. She reports her headache has progressively gotten worse each day. She is complaining of light sensitivity and experiencing nausea this evening. She's tried Tylenol, ibuprofen. She is use ice packs which have helped her a little bit today. She's noticed some visual disturbances, twitching of her eye. No fever or chills no recent upper respiratory or sinusitis complaints. No change in speech, no syncopal episodes. No numbness or tingling in her upper or lower extremities. No gait disturbance. Onset Date: 07/12/19 Duration: Day(s):, Getting Worse Location: Reports: Head Quality: Reports: Ache, Pressure Severity: Moderate Improves with: Reports: Cold Therapy, Medication Worsens with: Reports: Other (Light) Associated Symptoms: Reports: Nausea/Vomiting (No vomiting) Treatments CREDIT RISK REVIEW OFFICER: Reports: Acetaminophen, NSAIDS - Related Data Allergies Allergy/AdvReac Type Severity Reaction Status Date / Time amoxicillin [Amoxicillin] Allergy Severe Anaphylactic Verified 07/15/19 21:21 Shock sulfamethoxazole Allergy Itching Verified 07/15/19 21:21 [From Bactrim] trimethoprim [From Bactrim] Allergy Itching Verified 07/15/19 21:21 Home Meds: Home Meds ALPRAZolam [Alprazolam] 0.5 mg PO Q6HR PRN 12/11/18 [History] Past Medical History - Past Health History Medical/Surgical History: Denies Medical/Surgical History Cardiovascular History: Reports: Other (See Below) Other Cardiovascular History: Peripheral artery disease Respiratory History: Reports: Other (See Below) 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: quit smoking 03/30/2019 Gastrointestinal History: Reports: Chronic Constipation, Hemorrhoids Other Gastrointestinal History: hemorrhoid ectomy 06/08/2019 Other Genitourinary History: recent UTI [employer] 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: Musculoskeletal History: Reports: Fracture Psychiatric History: Reports: Anxiety, Panic Attack - Infectious Disease History Infectious Disease History: Reports: Chicken Pox - Past Surgical History Head Surgeries/Procedures: Reports: None HEENT Surgical History: Reports: Oral Surgery, Other (See Below) Other HEENT Surgeries/Procedures: wisdom tooth pulled Cardiovascular Surgical History: Reports: None Respiratory Surgical History: Reports: None GI Surgical History: Reports: None Musculoskeletal Surgical History: Reports: None Social & Family History - Family History Family Medical History: Noncontributory Cardiac: Reports: Other (See Below) Other Cardiac Family History: reports has family has cardiac issues - Caffeine Use Caffeine Use: Reports: Coffee Caffeine Use Comment: did not ask - Living Situation & Occupation Living situation: Reports: Single, with Significant Other Occupation: Employed ED ROS GENERAL - Review of Systems Review Of Systems: See Below Constitutional: Reports: No Symptoms HEENT: Reports: Eye Pain (Due to light sensitivity), Vision Change Respiratory: Reports: No Symptoms Cardiovascular: Reports: No Symptoms Endocrine: Reports: No Symptoms GI/Abdominal: Reports: Nausea. Denies: Vomiting : Reports: No Symptoms Musculoskeletal: Reports: No Symptoms Skin: Reports: No Symptoms Neurological: Reports: Headache. Denies: Trouble Speaking, Gait Disturbance Psychiatric: Reports: No Symptoms Hematologic/Lymphatic: Reports: No Symptoms Immunologic: Reports: No Symptoms - Physical Exam Exam: See Below Exam Limited By: No Limitations General Appearance: Alert, WD/WN, No Apparent Distress Eye Exam: Bilateral Eye: EOMI, PERRL Ears: Normal TMs Nose: Normal Inspection Throat/Mouth: Normal Inspection, Normal Voice, No Airway Compromise Neck: Normal Inspection, Supple Respiratory/Chest: Lungs Clear Cardiovascular: Regular Rate, Rhythm Neuro Exam (Abbreviated): Alert, Oriented, CN II-XII Intact, Normal Gait, No Motor/Sensory Deficits Back Exam: Normal Inspection Extremities: Normal Inspection, Normal Range of Motion Psychiatric: Normal Affect, Normal Mood Skin Exam: Warm, Dry, Intact, Normal Color, No Rash Course - Vital Signs Last Recorded V/S: Last Vital Signs Temp 97.6 F 07/15/19 20:30 Pulse 77 07/15/19 20:30 Resp 20 07/15/19 20:30 BP 116/78 07/15/19 20:30 Pulse Ox 98 07/15/19 20:30 - Orders/Labs/Meds Orders: Active Orders 24 hr Category Date Time Status Peripheral IV Care [RC] . DIRECTED Care 07/15/19 21:32 Active Sodium Chloride 0.9% [Saline Flush] Med 07/15/19 21:32 Active 10 ml FLUSH Q8HR PRN Peripheral IV Insertion Adult [OM.PC] Routine Oth 07/15/19 20:40 Ordered Medication Orders Sodium Chloride (Saline Flush) 10 ml FLUSH Q8HR PRN PRN Reason: keep vein open Last Admin: 07/15/19 21:12 Dose: 10 ml Meds: Medications Generic Name Dose Route Start Last Admin Trade Name Freq PRN Reason Stop Dose Admin Sodium Chloride 10 ml 07/15/19 21:32 07/15/19 21:12 Saline Flush FLUSH 10 ml Q8HR PRN Administration keep vein open Discontinued Medications Generic Name Dose Route Start Last Admin Trade Name Freq PRN Reason Stop Dose Admin Ketorolac Tromethamine 60 mg 07/15/19 20:56 07/15/19 21:14 Toradol IVPUSH 07/15/19 20:57 60 mg ONETIME ONE Administration Ondansetron HCl 6 mg 07/15/19 20:55 07/15/19 21:10 Zofran IVPUSH 07/15/19 20:56 6 mg ONETIME ONE Administration - Re-Assessments/Exams Free Text/Narrative Re-Assessment/Exam: 07/15/19 21:24 Patient given 60 mg IV Toradol, 6 mg IV Zofran for nausea. Departure - Departure Time of Disposition: 21:59 Disposition: Home, Self-Care 01 Condition: Good Clinical Impression: Headache Qualifiers: Headache type: unspecified Headache chronicity pattern: acute headache Intractability: not intractable Qualified Code(s): R51 - Headache - Discharge Information Instructions: Migraine Headache, [id number], Tension Headache, Adult, Easy-to -Read Forms: ED Department Discharge - My Orders Last 24 Hours: My Active Orders 07/15/19 20:40 Peripheral IV Insertion Adult [OM.PC] Routine 07/15/19 21:32 Peripheral IV Care [RC] . DIRECTED Sodium Chloride 0.9% [Saline Flush] 10 ml FLUSH Q8HR PRN - Assessment/Plan Last 24 Hours: My Active Orders 07/15/19 20:40 Peripheral IV Insertion Adult [OM.PC] Routine 07/15/19 21:32 Peripheral IV Care [RC] . DIRECTED Sodium Chloride 0.9% [Saline Flush] 10 ml FLUSH Q8HR PRN Assessment:: Headache, migraine type Plan: 1. Rest 2. Avoid vigorous activity 3. Avoid bright light rooms or activities that trigger headache. 4. Return to the ER if symptoms persist or worsen. 5. All your primary care for discussion of headaches.
[2019-07-15] MEDS ORDERED: Sodium Chloride 0.9% 10 ML Syringe FLUSH PRN (21:32)
== END 2019-07-15 21:46 | disposition home or self-care (01) ==
LOC: KA.ED 20:30
DX: R51 Headache (principal); F41.9 Anxiety disorder, unspecified; Z79.899 Other long term (current) drug therapy; Z87.891 Personal history of nicotine dependence; Z88.1 Allergy status to other antibiotic agents; Z88.2 Allergy status to sulfonamides
CPT/HCPCS: 96374; 96375; 99283-25; J1885; J2405

== ENCOUNTER 2019-10-07 01:50 | Emergency (ER) | payer SELFPAY ==
[2019-10-07] MEDS ORDERED: LORazepam 0.5 MG Tab PO ONE (02:05)
--- NOTE | 2019-10-07 02:16 | EDM.PDOC ---
ED HPI GENERAL MEDICAL PROBLEM - General Chief Complaint: Chest Pain Stated Complaint: chest pain Time Seen by Provider: 10/07/19 02:05 Source of Information: Reports: Patient History Limitations: Reports: No Limitations - History of Present Illness INITIAL COMMENTS - FREE TEXT/NARRATIVE: Patient is a 39-year-old female who presents to the emergency department this morning with a complaint of chest pain. Patient states that symptoms began about 1015 last night. Described as light pressure on right chest. Patient has history of anxiety and takes Xanax. She states she felt anxious during the day and took a Xanax at 1030 p.m. Symptoms seemed to resolve, however, returned again. She decided to have her girlfriend bring her to the emergency department. Patient states she had dinner approximately 6 p.m. last night, denies any alcohol or social drugs, and has had these similar symptoms previously. However, felt unsure this evening. Patient denies family history of early cardiac disease, fever, trauma, alcohol or drugs, diaphoresis, nausea, vomiting, diarrhea, out of country travel, lower extremity edema, or history of blood clots. Onset: Gradual Onset Time: 10:15 Duration: Hour(s): Location: Reports: Chest Quality: Reports: Pressure Severity: Mild Improves with: Reports: Other (Spontaneously) Worsens with: Reports: None Context: Reports: Other (At rest) Associated Symptoms: Denies: Confusion, Cough, Diaphoresis, Fever/Chills, Nausea /Vomiting, Shortness of Breath Treatments INSPECTOR SUBASSEMBLY: Reports: Other (see below) (0.5 Xanax) Chest Pain Score (Numeric/FACES): 6 - Related Data Allergies Allergy/AdvReac Type Severity Reaction Status Date / Time amoxicillin [Amoxicillin] Allergy Severe Anaphylactic Verified 07/15/19 21:21 Shock ciprofloxacin Allergy Cannot Verified 08/11/19 13:40 Remember sulfamethoxazole Allergy Itching Verified 07/15/19 21:21 [From Bactrim] trimethoprim [From Bactrim] Allergy Itching Verified 07/15/19 21:21 Home Meds: Home Meds ALPRAZolam [Alprazolam] 0.5 mg PO Q6HR PRN 12/11/18 [History] Ondansetron [Zofran] 4 mg PO Q6H PRN 08/11/19 [History] Past Medical History - Past Health History Medical/Surgical History: Denies Medical/Surgical History Cardiovascular History: Reports: Other (See Below) Other Cardiovascular History: Peripheral artery disease Respiratory History: Reports: Other (See Below) 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: quit smoking 03/30/2019 Gastrointestinal History: Reports: Chronic Constipation, Hemorrhoids Other Gastrointestinal History: hemorrhoid ectomy 06/08/2019 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: Musculoskeletal History: Reports: Fracture Neurological History: Reports: Migraines Psychiatric History: Reports: Anxiety, Panic Attack - Infectious Disease History Infectious Disease History: Reports: Chicken Pox - Past Surgical History Head Surgeries/Procedures: Reports: None HEENT Surgical History: Reports: Oral Surgery, Other (See Below) Other HEENT Surgeries/Procedures: wisdom tooth pulled Cardiovascular Surgical History: Reports: None Respiratory Surgical History: Reports: None GI Surgical History: Reports: None Musculoskeletal Surgical History: Reports: None Social & Family History - Family History Family Medical History: Noncontributory Cardiac: Reports: Other (See Below) Other Cardiac Family History: reports has family has cardiac issues - Tobacco Use Smoking Status *Q: Current Every Day Smoker Years of Tobacco use: 10 Packs/Tins Daily: 1 Used Tobacco, but Quit: No Second Hand Smoke Exposure: Yes - Caffeine Use Caffeine Use: Reports: Coffee Caffeine Use Comment: did not ask - Recreational Drug Use Recreational Drug Use: No - Living Situation & Occupation Living situation: Reports: Single, with Significant Other Occupation: Employed ED ROS GENERAL - Review of Systems Review Of Systems: Comprehensive ROS is negative, except as noted in HPI. Constitutional: Reports: No Symptoms HEENT: Reports: No Symptoms Respiratory: Reports: No Symptoms Cardiovascular: Reports: Chest Pain Endocrine: Reports: No Symptoms GI/Abdominal: Reports: No Symptoms : Reports: No Symptoms Musculoskeletal: Reports: No Symptoms Skin: Reports: No Symptoms Neurological: Reports: No Symptoms Psychiatric: Reports: Anxiety Hematologic/Lymphatic: Reports: No Symptoms Immunologic: Reports: No Symptoms ED EXAM, GENERAL - Physical Exam Exam: See Below Exam Limited By: No Limitations General Appearance: Alert, WD/WN, No Apparent Distress Eye Exam: Bilateral Eye: Normal Inspection Nose: Normal Inspection, Normal Mucosa, No Blood Throat/Mouth: Normal Inspection, Normal Oropharynx, No Airway Compromise Head: Atraumatic, Normocephalic Neck: Normal Inspection, Supple, Non-Tender, Full Range of Motion Respiratory/Chest: No Respiratory Distress, Lungs Clear, Normal Breath Sounds, No Accessory Muscle Use, Chest Non-Tender Cardiovascular: Normal Peripheral Pulses, Regular Rate, Rhythm, No Murmur, No Rub GI/Abdominal: Normal Bowel Sounds, Soft, Non-Tender, No Organomegaly, No Distention, No Abnormal Bruit, No Mass Back Exam: Normal Inspection. No: CVA Tenderness (L), CVA Tenderness (R) Extremities: Normal Inspection, No Pedal Edema Neurological: Alert, Oriented, Normal Cognition Psychiatric: Anxious Skin Exam: Warm, Dry, Intact, Normal Color, No Rash Lymphatic: No Adenopathy EKG INTERPRETATION EKG Date: 10/07/19 Time: 01:45 Rhythm: NSR Rate (Beats/Min): 76 [place]: Normal P-Wave: Present QRS: Normal ST-T: Normal QT: Normal Course - Vital Signs Last Recorded V/S: Last Vital Signs Temp 97.6 F 10/07/19 01:51 Pulse 72 10/07/19 01:51 Resp 18 10/07/19 01:51 BP 131/97 H 10/07/19 01:51 Pulse Ox 98 10/07/19 01:51 - Orders/Labs/Meds Meds: Medications Discontinued Medications Generic Name Dose Route Start Last Admin Trade Name Freq PRN Reason Stop Dose Admin Lorazepam 1 mg 10/07/19 02:05 Ativan PO 10/07/19 02:06 ONETIME ONE - Re-Assessments/Exams Free Text/Narrative Re-Assessment/Exam: 10/07/19 02:29 Patient afebrile, vital signs stable, symptoms completely resolved following 1 mg Ativan. Patient will follow-up in the clinic on Wednesday to see about medication regimen. Departure - Departure Time of Disposition: 02:29 Disposition: Home, Self-Care 01 Condition: Good Clinical Impression: Anxiety - Discharge Information Instructions: Generalized Anxiety Disorder, Adult Referrals: Siena Barron MD [Physician] - Additional Instructions: Follow-up at the [facility] on Wednesday. Return to emergency department sooner if symptoms continue or worsen. Sepsis Event Note - Evaluation Sepsis Screening Result: No Definite Risk - Focused Exam Vital Signs: Vital Signs Temp Pulse Resp BP Pulse Ox 10/07/19 01:51 97.6 F 72 18 131/97 H 98 Date Exam was Performed: 10/07/19 Time Exam was Performed: 02:07 - Assessment/Plan Assessment:: Anxiety Plan: Follow-up at clinic
[2019-10-07 02:29] VITALS: BP 123/68; PULSE 70
== END 2019-10-07 02:35 | disposition home or self-care (01) ==
LOC: KA.ED 01:50
DX: F41.9 Anxiety disorder, unspecified (principal); F17.210 Nicotine dependence, cigarettes, uncomplicated; Z88.1 Allergy status to other antibiotic agents; Z88.2 Allergy status to sulfonamides; Z79.899 Other long term (current) drug therapy
CPT/HCPCS: 93005; 99284; 99284-25; A9270-GY

== ENCOUNTER 2020-06-16 20:38 | Emergency (ER) | payer SELFPAY ==
[2020-06-16 20:47] VITALS: BP 154/93; PULSE 82
--- NOTE | 2020-06-16 21:26 | EDM.PDOC ---
ED HPI GENERAL MEDICAL PROBLEM - General Chief Complaint: General Stated Complaint: Shoulder Pain Time Seen by Provider: 06/16/20 21:06 Source of Information: Reports: Patient History Limitations: Reports: No Limitations - History of Present Illness INITIAL COMMENTS - FREE TEXT/NARRATIVE: Patient presents with pain in the left neck to shoulder the past few hours. She is quite anxious about it because she doesn't think she will be able to sleep tonight and she works tomorrow [employer]. She has tried Aleve and Ibuprofen without relief. She deals with anxiety chronically also. No injury. Left Shoulder/Clavicle Pain Score (Numeric/FACES): 5 - Related Data Allergies Allergy/AdvReac Type Severity Reaction Status Date / Time amoxicillin [Amoxicillin] Allergy Severe Anaphylactic Verified 06/16/20 20:46 Shock ciprofloxacin Allergy Cannot Verified 06/16/20 20:46 Remember sulfamethoxazole Allergy Itching Verified 06/16/20 20:46 [From Bactrim] trimethoprim [From Bactrim] Allergy Itching Verified 06/16/20 20:46 Home Meds: Home Meds ALPRAZolam [Alprazolam] 0.5 mg PO Q6HR PRN 12/11/18 [History] Ondansetron [Zofran] 4 mg PO Q6H PRN 08/11/19 [History] Past Medical History - Past Health History Medical/Surgical History: Denies Medical/Surgical History Cardiovascular History: Reports: Other (See Below) Other Cardiovascular History: Peripheral artery disease Respiratory History: Reports: Other (See Below) 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: quit smoking 03/30/2019 Gastrointestinal History: Reports: Chronic Constipation, Hemorrhoids Other Gastrointestinal History: hemorrhoid ectomy 06/08/2019 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: Musculoskeletal History: Reports: Fracture Neurological History: Reports: Migraines Psychiatric History: Reports: Anxiety, Panic Attack - Infectious Disease History Infectious Disease History: Reports: Chicken Pox - Past Surgical History Head Surgeries/Procedures: Reports: None HEENT Surgical History: Reports: Oral Surgery, Other (See Below) Other HEENT Surgeries/Procedures: wisdom tooth pulled Cardiovascular Surgical History: Reports: None Respiratory Surgical History: Reports: None GI Surgical History: Reports: None Musculoskeletal Surgical History: Reports: None Social & Family History - Family History Family Medical History: Noncontributory Cardiac: Reports: Other (See Below) Other Cardiac Family History: reports has family has cardiac issues - Tobacco Use Smoking Status *Q: Current Every Day Smoker Years of Tobacco use: 15 Packs/Tins Daily: 0.5 - Caffeine Use Caffeine Use: Reports: Coffee Caffeine Use Comment: did not ask - Recreational Drug Use Recreational Drug Use: No - Living Situation & Occupation Living situation: Reports: Single, with Significant Other Occupation: Employed ED ROS GENERAL - Review of Systems Review Of Systems: See Below Constitutional: Denies: Fever, Chills, Malaise, Weakness, Fatigue HEENT: Denies: Ear Pain, Throat Pain, Vision Change Respiratory: Denies: Shortness of Breath, Cough Cardiovascular: Denies: Chest Pain, Lightheadedness, Syncope Endocrine: Denies: Fatigue GI/Abdominal: Reports: Nausea (a bit from the pain). Denies: Abdominal Pain, Diarrhea, Vomiting : Denies: Dysuria, Flank Pain Musculoskeletal: Reports: Shoulder Pain. Denies: Neck Pain, Arm Pain, Back Pain, Hand Pain, Leg Pain Skin: Denies: Cyanosis, Jaundice, Mottled, Pallor, Diaphoresis Neurological: Denies: Confusion, Dizziness, Headache, Seizure, Syncope, Trouble Speaking, Difficulty Walking Psychiatric: Reports: Anxiety. Denies: Agitation, Confusion ED EXAM, GENERAL - Physical Exam Exam: See Below Exam Limited By: No Limitations General Appearance: Alert, WD/WN, No Apparent Distress Eye Exam: Bilateral Eye: EOMI, Normal Inspection, PERRL Ears: Normal External Exam, Hearing Grossly Normal Nose: Normal Inspection, No Blood Throat/Mouth: Normal Inspection, Normal Lips, Normal Voice, No Airway Compromise Head: Atraumatic, Normocephalic Neck: Normal Inspection, Supple, Non-Tender, Full Range of Motion Respiratory/Chest: No Respiratory Distress, Lungs Clear, Normal Breath Sounds, No Accessory Muscle Use, Other (Palpation produces tenderness of superior sternum, left clavicle and the soft tissue above the lateral clavicle. No definite muscle spasm is appreciated. No erythema, induration or abscess present. The most tender area is the supraclavicular soft tissue. The pain comes and goes but doesn't limit ROM of head or arm.) Cardiovascular: Regular Rate, Rhythm, No Murmur GI/Abdominal: Normal Bowel Sounds, Soft, Non-Tender, No Organomegaly, No Distention, No Abnormal Bruit Back Exam: Normal Inspection, Full Range of Motion. No: CVA Tenderness (L), CVA Tenderness (R) Extremities: Normal Inspection, Normal Range of Motion, Non-Tender Neurological: Alert, Oriented, Normal Cognition, No Motor/Sensory Deficits Psychiatric: Normal Affect, Anxious Skin Exam: Warm, Dry, Intact, Normal Color, No Rash Course - Vital Signs Last Recorded V/S: Last Vital Signs Temp 97.3 F 06/16/20 20:42 Pulse 82 06/16/20 20:47 Resp 16 06/16/20 20:42 BP 154/93 H 06/16/20 20:47 Pulse Ox 100 06/16/20 20:42 - Re-Assessments/Exams Free Text/Narrative Re-Assessment/Exam: 06/16/20 21:30 Discussed findings and treatment plan. We discussed that there could be some costochondritis involved as well as the likely muscle strain. Patient appears quite comfortable and basically unaffected by the symptoms, which seem transient. She is ready to go home and try to rest. Discharged to home in stable condition. Departure - Departure Time of Disposition: 21:17 Disposition: Home, Self-Care 01 Condition: Good Clinical Impression: Anxiety, Anxiety about health Neck muscle strain Qualifiers: Encounter type: initial encounter Qualified Code(s): S16.1XXA - Strain of muscle, fascia and tendon at neck level, initial encounter - Discharge Information Additional Instructions: You can continue Aleve or Advil (not both) for pain as needed. Take one of your Lorazepam tonight to help relax the muscles and reduce your anxiety. Follow up with your PCP if not improving in 3-4 days. Sepsis Event Note (ED) - Evaluation Sepsis Screening Result: No Definite Risk - Focused Exam Vital Signs: Vital Signs Temp Pulse Resp BP Pulse Ox 06/16/20 20:47 82 154/93 H 06/16/20 20:42 97.3 F 86 16 172/89 H 100
== END 2020-06-16 21:23 | disposition home or self-care (01) ==
LOC: KA.ED 20:38
DX: S16.1XXA Strain of muscle, fascia and tendon at neck level, initial encounter (principal); F41.9 Anxiety disorder, unspecified; F17.210 Nicotine dependence, cigarettes, uncomplicated; Z88.1 Allergy status to other antibiotic agents; Z88.2 Allergy status to sulfonamides; X58.XXXA Exposure to other specified factors, initial encounter
CPT/HCPCS: 99283; 99284

== ENCOUNTER 2020-12-27 21:07 | Emergency (ER) | payer SELFPAY ==
[2020-12-27 21:49] VITALS: BP 147/83; PULSE 81
[2020-12-27] MEDS ORDERED: Clindamycin HCl 150 MG Cap PO ONE (21:56)
[2020-12-27] MEDS ORDERED: Ketorolac 30 MG/ML SDV IM ONE (21:56)
--- NOTE | 2020-12-27 22:15 | EDM.PDOC ---
ED HPI GENERAL MEDICAL PROBLEM - General Chief Complaint: Headache Stated Complaint: TOOTHACHE, HEAD ACHE Time Seen by Provider: 12/27/20 21:10 Source of Information: Reports: Patient History Limitations: Reports: No Limitations - History of Present Illness INITIAL COMMENTS - FREE TEXT/NARRATIVE: 40-year-old female presents to the emergency room with complaints of a tooth ache and headache. Patient states that she has a tooth filling that had cracked. She does have a dentist appointment but not for almost 2 weeks. She has been experience increasing pain discomfort in the left lower jaw and has been taking ibuprofen throughout the day for this. Subsequently it is caused her to have a headache. She does have a history of frequent headaches. She is concerned she may be developing an abscessed tooth therefore presents to the emergency room. She denies any fever or chills. No shortness of breath, cough or upper respiratory complaints. 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: NSAIDS - Related Data Allergies Allergy/AdvReac Type Severity Reaction Status Date / Time amoxicillin [Amoxicillin] Allergy Severe Anaphylactic Verified 12/27/20 21:42 Shock ciprofloxacin Allergy Cannot Verified 12/27/20 21:42 Remember sulfamethoxazole Allergy Itching Verified 12/27/20 21:42 [From Bactrim] trimethoprim [From Bactrim] Allergy Itching Verified 12/27/20 21:42 Home Meds: Home Meds ALPRAZolam [Alprazolam] 0.5 mg PO Q6HR PRN 12/11/18 [History] Past Medical History - Past Health History Medical/Surgical History: Denies Medical/Surgical History Cardiovascular History: Reports: Other (See Below) Other Cardiovascular History: Peripheral artery disease Respiratory History: Reports: Other (See Below) 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: quit smoking 03/30/2019 Gastrointestinal History: Reports: Chronic Constipation, Hemorrhoids Other Gastrointestinal History: hemorrhoid ectomy 06/08/2019 Other Genitourinary History: recent UTI 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: Musculoskeletal History: Reports: Fracture Neurological History: Reports: Migraines Psychiatric History: Reports: Anxiety, Panic Attack - Infectious Disease History Infectious Disease History: Reports: Chicken Pox - Past Surgical History Head Surgeries/Procedures: Reports: None HEENT Surgical History: Reports: Oral Surgery, Other (See Below) Other HEENT Surgeries/Procedures: wisdom tooth pulled Cardiovascular Surgical History: Reports: None Respiratory Surgical History: Reports: None GI Surgical History: Reports: None Musculoskeletal Surgical History: Reports: None Social & Family History - Family History Family Medical History: No Pertinent Family History Cardiac: Reports: Other (See Below) Other Cardiac Family History: reports has family has cardiac issues - Caffeine Use Caffeine Use: Reports: Coffee Caffeine Use Comment: did not ask - Living Situation & Occupation Living situation: Reports: Single, with Significant Other Occupation: Employed ED ROS ENT - Review of Systems Review Of Systems: Comprehensive ROS is negative, except as noted in HPI. ED EXAM, ENT - Physical Exam Exam: See Below Exam Limited By: No Limitations General Appearance: Alert, WD/WN, No Apparent Distress Eye Exam: Bilateral Eye: EOMI Ears: Hearing Grossly Normal Nose: Normal Inspection, Normal Mucousa, No Blood Mouth/Throat: Normal Inspection, Normal Gums, Normal Lips, Normal Oropharynx, Dental Pain, Dental Tenderness. No: Dental Abcess Head: Atraumatic, Normocephalic Neck: Normal Inspection, Supple, Full Range of Motion. No: Lymphadenopathy (L), Lymphadenopathy (R) Back: Normal Inspection Extremities: Normal Inspection Neurological: Alert, Oriented, No Motor/Sensory Deficits Psychiatric: Normal Affect, Normal Mood Course - Vital Signs Last Recorded V/S: Last Vital Signs Temp 98.1 F 12/27/20 21:47 Pulse 81 12/27/20 21:47 Resp 16 12/27/20 21:47 BP 147/83 H 12/27/20 21:47 Pulse Ox 98 12/27/20 21:47 - Orders/Labs/Meds Meds: Medications Discontinued Medications Generic Name Dose Route Start Last Admin Trade Name Freq PRN Reason Stop Dose Admin Clindamycin HCl 150 mg 12/27/20 21:56 12/27/20 22:13 Clindamycin Hcl 150 Mg Cap PO 12/27/20 21:57 150 mg ONETIME ONE Administration Ketorolac Tromethamine 30 mg 12/27/20 21:56 12/27/20 22:13 Ketorolac 30 Mg/Ml Sdv IM 12/27/20 21:57 30 mg ONETIME ONE Administration - Re-Assessments/Exams Free Text/Narrative Re-Assessment/Exam: 12/27/20 23:27 Patient was given IM Toradol 30 mg important. She was started on clindamycin 150 mg tonight. Departure - Departure Time of Disposition: 22:20 Disposition: Home, Self-Care 01 Condition: Good Clinical Impression: Tooth ache Headache Qualifiers: Headache type: unspecified Headache chronicity pattern: acute headache Intractability: not intractable Qualified Code(s): R51 - Headache - Discharge Information Instructions: Dental Abscess, Tension Headache, Adult Referrals: Siena Barron MD [Primary Care Provider] - Forms: ED Department Discharge Care Plan Goals: 1. Toradol 10 mg every 8 hours as needed for tooth ache. 2. Clindamycin 150 mg daily for tooth ache. 3. Follow up with your dentist for tooth avulsion decay Sepsis Event Note (ED) - Evaluation Sepsis Screening Result: No Definite Risk - Focused Exam Vital Signs: Vital Signs Temp Pulse Resp BP Pulse Ox 12/27/20 21:47 98.1 F 81 16 147/83 H 98 - Assessment/Plan Assessment:: 1. toothache 2. headache Plan: 1. Toradol 10 mg every 8 hours as needed for tooth ache. 2. Clindamycin 150 mg daily for tooth ache. 3. Follow up with your dentist for tooth avulsion decay
== END 2020-12-27 22:20 | disposition home or self-care (01) ==
LOC: KA.ED 21:07
DX: K08.89 Other specified disorders of teeth and supporting structures (principal); R51.9 Headache, unspecified
CPT/HCPCS: 96372; 99283; A9270-GY; J1885

== ENCOUNTER 2021-02-05 22:00 | Emergency (ER) | payer SELFPAY ==
[2021-02-05] MEDS ORDERED: Alum Hydrox/Mag Hydrox/Simeth 30 ML, Lidocaine 2% 15 ML PO ONE ×2 (22:12)
--- NOTE | 2021-02-05 22:30 | EDM.PDOC ---
ED HPI GENERAL MEDICAL PROBLEM - General Chief Complaint: General Stated Complaint: chest pain/discomfort Time Seen by Provider: 02/05/21 22:00 Source of Information: Reports: Patient History Limitations: Reports: No Limitations - History of Present Illness INITIAL COMMENTS - FREE TEXT/NARRATIVE: Francheska, 40-year-old female, presents per self, per pedis to the emergency department with a ongoing issue of chest pain pressure today. She stated this started early this afternoon and is waxed and waned resolving completely then recurring and has been predominantly mid breast line epigastric in nature. She states this is different than when she was seen for chest pain slightly over a year ago, stating "that no was anxiety and I have been very good controlling that ever since". She was out last night dining at a new facility eating different type of food. At time of discharge she acknowledges to me that she has a sensitive stomach to begin with without having different diet intake. She denies nausea or vomiting, denies fever chills. At the time of her arrival her pain has typically resolved and during examination it was more epigastric. She is known for positive Covid roughly 6 months ago and no symptoms thereafter. Onset: Today, Gradual Duration: Hour(s): - Related Data Allergies Allergy/AdvReac Type Severity Reaction Status Date / Time amoxicillin [Amoxicillin] Allergy Severe Anaphylactic Verified 12/27/20 21:42 Shock ciprofloxacin Allergy Cannot Verified 12/27/20 21:42 Remember clindamycin Allergy Diarrhea Verified 02/05/21 22:12 sulfamethoxazole Allergy Itching Verified 12/27/20 21:42 [From Bactrim] trimethoprim [From Bactrim] Allergy Itching Verified 12/27/20 21:42 Home Meds: Home Meds ALPRAZolam [Alprazolam] 0.5 mg PO Q6HR PRN 12/11/18 [History] Albuterol [Take Home: Albuterol 18 GM, 1 INH Pack] 1 inh IH ASDIRECTED PRN 02/05/21 [History] Past Medical History - Past Health History Medical/Surgical History: Denies Medical/Surgical History Cardiovascular History: Reports: Other (See Below) Other Cardiovascular History: Peripheral artery disease Respiratory History: Reports: Other (See Below) 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: quit smoking 03/30/2019 Gastrointestinal History: Reports: Chronic Constipation, Hemorrhoids Other Gastrointestinal History: hemorrhoid ectomy 06/08/2019 Other Genitourinary History: recent UTI 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: Musculoskeletal History: Reports: Fracture Neurological History: Reports: Migraines Psychiatric History: Reports: Anxiety, Panic Attack - Infectious Disease History Infectious Disease History: Reports: Chicken Pox, Novel Coronavirus (COVID-19), Other (See Below) (COVID-19) - Past Surgical History Head Surgeries/Procedures: Reports: None HEENT Surgical History: Reports: Oral Surgery, Other (See Below) Other HEENT Surgeries/Procedures: wisdom tooth pulled Cardiovascular Surgical History: Reports: None Respiratory Surgical History: Reports: None GI Surgical History: Reports: None Musculoskeletal Surgical History: Reports: None Social & Family History - Family History Family Medical History: No Pertinent Family History Cardiac: Reports: Other (See Below) Other Cardiac Family History: reports has family has cardiac issues - Tobacco Use Tobacco Use Status *Q: Former Tobacco User (States 8 days smoking cessation) Tobacco Use Within Last Twelve Months: Cigarettes Used Tobacco, but Quit: Yes - Caffeine Use Caffeine Use: Reports: Coffee, Soda Caffeine Use Comment: did not ask - Living Situation & Occupation Living situation: Reports: Single, with Significant Other Occupation: Employed ED ROS GENERAL - Review of Systems Review Of Systems: Comprehensive ROS is negative, except as noted in HPI. ED EXAM, GENERAL - Physical Exam Exam: See Below Free Text/Narrative:: Alert oriented and cheerful in no evidence of distress. No cyanosis nor pallor is noted. PERRLA no icterus no injection. [place] moist mucous membranes Neck is soft supple no lymphadenopathy no JVD nor bruit appreciated. Thorax is clear throughout with no wheezes nor crackles. Cardiac is S1-S2 I do not appreciate murmur. Abdomen is soft bowel sounds are present there is no tenderness no rebound tenderness and no flank pain. Trace edema to the lower extremities. #1 Interpretation EKG Date: 02/05/21 Time: 22:06 Rhythm: NSR Rate (Beats/Min): 77 [place]: Normal P-Wave: Present QRS: Normal ST-T: Normal QT: Normal Comparison: No Change Course - Orders/Labs/Meds Orders: Active Orders 24 hr Category Date Time Status EKG Documentation Completion [RC] ASDIRECTED Care 02/05/21 22:11 Active Chest 1V Frontal [CR] Stat Exams 02/05/21 22:15 Ordered EKG 12 Lead [EK] Urgent Ther 02/05/21 22:11 Ordered Labs: Laboratory Tests 02/05/21 02/05/21 Range/Units 22:21 22:21 WBC 11.34 H (5.00-10.00) 10^3/uL RBC 4.67 (3.80-5.50) 10^6/uL Hgb 14.2 (12.0-16.0) g/dL Hct 42.4 (37.0-47.0) % MCV 90.8 (82.0-92.0) fL MCH 30.4 (27.0-31.0) pg MCHC 33.5 (32.0-36.0) g/dL RDW 12.4 (11.5-14.5) % Plt Count 244 (150-400) 10^3/uL MPV 10.2 (7.4-10.4) fL Immature Gran % (Auto) 0.2 (0.0-5.0) % Neut % (Auto) 51.5 (50.0-70.0) % Lymph % (Auto) 32.9 (20.0-40.0) % [place] % (Auto) 12.4 H (2.0-8.0) % Eos % (Auto) 2.5 (1.0-3.0) % Baso % (Auto) 0.5 (0.0-1.0) % Neut # (Auto) 5.84 (2.50-7.00) 10^3/uL Lymph # (Auto) 3.73 (1.00-4.00) 10^3/uL [place] # (Auto) 1.41 H (0.10-0.80) 10^3/uL Eos # (Auto) 0.28 (0.10-0.30) 10^3/uL Baso # (Auto) 0.06 (0.00-0.10) 10^3/uL Immature Gran # (Auto) 0.02 (0.00-0.50) 10^3/uL Sodium 142 (136-145) mmol/L Potassium 3.6 (3.5-5.1) mmol/L Chloride 103 (98-107) mmol/L Carbon Dioxide 26.1 (21.0-32.0) mmol/L Anion Gap 16.5 H (5-15) mmol/L BUN 9 (7-18) mg/dL Creatinine 0.67 (0.51-1.17) mg/dL Est Cr Clr Drug Dosing TNP Estimated GFR (MDRD) > 60 mL/min Glucose 125 (70-140) mg/dL Calcium 8.9 (8.7-10.3) mg/dL Total Bilirubin 0.3 (0.2-1.0) mg/dL AST 12 L (15-37) U/L ALT 27 (14-63) U/L Alkaline Phosphatase 85 (46-116) U/L Troponin I High Sens < 4.000 (0-51.000) pg/mL Total Protein 7.3 (6.4-8.2) g/dL Albumin 3.49 (3.40-5.00) g/dL Meds: Medications Discontinued Medications Generic Name Dose Route Start Last Admin Trade Name Freq PRN Reason Stop Dose Admin Al Hydroxide/Mg Hydroxide 30 0 ml 02/05/21 22:12 02/05/21 22:16 ml/ Lidocaine HCl 15 ml PO 02/05/21 22:13 45 ml ONETIME ONE Administration Departure - Departure Time of Disposition: 23:03 Disposition: Home, Self-Care 01 Condition: Good Clinical Impression: Dyspepsia, Atypical chest pain, Anxiety about health - Discharge Information *PRESCRIPTION DRUG MONITORING PROGRAM REVIEWED*: Not Applicable *COPY OF PRESCRIPTION DRUG MONITORING REPORT IN PATIENT KATIE: Not Applicable Instructions: Indigestion, [id number], Nonspecific Chest Pain, Adult, [id number] Referrals: Madeleine Mcleod PA-C [Primary Care Provider] - Forms: ED Department Discharge Additional Instructions: Your lab tests and EKG were negative for any cardiac involvement. Your chest x-ray is benign for any evidence of acute findings. It is likely that when the GI cocktail resolved your discomfort completely that it was related to your meal last night in some form. Continue your medications as directed. Avoid spicy food and carbonated beverages. Avoid lying down within 2 hours of eating or drinking. Consider elevating the head of your bed. Contact the clinic and have a follow-up appointment with Madeleine in the upcoming week as able to schedule. Call clinic or return to the emergency department if symptoms worsen. - Problem List & Annotations (1) Dyspepsia SNOMED Code(s): 687289134 Code(s): R10.13 - EPIGASTRIC PAIN Status: Acute Priority: High (2) Atypical chest pain SNOMED Code(s): 019002918 Code(s): R07.89 - OTHER CHEST PAIN Status: Acute Priority: High - Problem List Review Problem List Initiated/Reviewed/Updated: Yes - My Orders Last 24 Hours: My Active Orders 02/05/21 22:11 EKG Documentation Completion [RC] ASDIRECTED EKG 12 Lead [EK] Urgent 02/05/21 22:15 Chest 1V Frontal [CR] Stat - Assessment/Plan Last 24 Hours: My Active Orders 02/05/21 22:11 EKG Documentation Completion [RC] ASDIRECTED EKG 12 Lead [EK] Urgent 02/05/21 22:15 Chest 1V Frontal [CR] Stat Plan: Your lab tests and EKG were negative for any cardiac involvement. Your chest x-ray is benign for any evidence of acute findings. It is likely that when the GI cocktail resolved your discomfort completely that it was related to your meal last night in some form. Continue your medications as directed. Avoid spicy food and carbonated beverages. Avoid lying down within 2 hours of eating or drinking. Consider elevating the head of your bed. Contact the clinic and have a follow-up appointment with Madeleine in the upcoming week as able to schedule. Call clinic or return to the emergency department if symptoms worsen.
[2021-02-05 22:50] LABS: ANION GAP 16.5 mmol/L (5-15); CHLORIDE,CL 103 mmol/L (98-107); SODIUM,NA 142 mmol/L (136-145)
[2021-02-06 02:11] VITALS: BP 141/89; PULSE 91
--- NOTE | 2021-02-06 08:48 | CR ---
[id number] RAD/RAD Chest Portable EXAM: PORTABLE CHEST INDICATION: CHEST PAIN COMPARISON: July 08, 2017. DISCUSSION: The lungs are borderline hyperinflated, but clear. The heart is normal in size. No effusions. IMPRESSION: 1. Negative exam. Nolan Aden MD 02/06/21 0846 Thank you for allowing us to participate in the care of your patient.
== END 2021-02-05 23:09 | disposition home or self-care (01) ==
LOC: KA.ED 22:00
DX: F41.9 Anxiety disorder, unspecified (principal); R10.13 Epigastric pain; Z88.1 Allergy status to other antibiotic agents; Z86.16 Personal history of COVID-19; Z88.0 Allergy status to penicillin; Z87.891 Personal history of nicotine dependence
CPT/HCPCS: 36415; 71045; 80053; 84484; 85025; 93005; 99285; A9270; 99284

== ENCOUNTER 2021-05-31 09:10 | Emergency (ER) | payer SELFPAY ==
[2021-05-31 09:36] VITALS: BP 135/85; PULSE 89
[2021-05-31] MEDS: Ketorolac 60 MG/2 ML SDV IM ONE (09:54)
[2021-05-31 10:08] LABS: ANION GAP 15.1 mmol/L (5-15); CHLORIDE,CL 101 mmol/L (98-107); SODIUM,NA 139 mmol/L (136-145)
--- NOTE | 2021-05-31 10:35 | EDM.PDOC ---
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 She was seen in [facility] yesterday and some lab work was done for complaints of vaginitis. She was sent home on Toradol. She continues to have his same concerns and complaints. She denies any fever or chills. She denies any history of previous STDs. She reports that she is had the same sexual partner for 8 years. She denies any active bleeding. I was able to obtain her culture results and it came back positive for bacterial vaginosis negative for trichomonas and negative for Naina. Onset: Gradual Onset Date: 05/29/21 Duration: Day(s):, Constant Location: Reports: Pelvis Quality: Reports: Burning Severity: Moderate Improves with: Reports: None Worsens with: Reports: Other (Urinating) Associated Symptoms: Denies: Fever/Chills, Nausea/Vomiting Treatments ANESTHETIST: Reports: NSAIDS Vaginal Pain Score (Numeric/FACES): 8 - Related Data Allergies Allergy/AdvReac Type Severity Reaction Status Date / Time amoxicillin [Amoxicillin] Allergy Severe Anaphylactic Verified 05/31/21 09:30 Shock ciprofloxacin Allergy Cannot Verified 05/31/21 09:30 Remember clindamycin Allergy Diarrhea Verified 05/31/21 09:30 sulfamethoxazole Allergy Itching Verified 05/31/21 09:30 [From Bactrim] trimethoprim [From Bactrim] Allergy Itching Verified 05/31/21 09:30 Past Medical History - Past Health History Medical/Surgical History: Denies Medical/Surgical History Cardiovascular History: Reports: Other (See Below) Other Cardiovascular History: Peripheral artery disease Respiratory History: Reports: Other (See Below) 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: quit smoking 03/30/2019 Gastrointestinal History: Reports: Chronic Constipation, Hemorrhoids Other Gastrointestinal History: hemorrhoid ectomy 06/08/2019 Other Genitourinary History: recent UTI 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: Musculoskeletal History: Reports: Fracture Neurological History: Reports: Migraines Psychiatric History: Reports: Anxiety, Panic Attack - Infectious Disease History Infectious Disease History: Reports: Chicken Pox, Novel Coronavirus, Other (See Below) - Past Surgical History Head Surgeries/Procedures: Reports: None HEENT Surgical History: Reports: Oral Surgery, Other (See Below) Other HEENT Surgeries/Procedures: wisdom tooth pulled Cardiovascular Surgical History: Reports: None Respiratory Surgical History: Reports: None GI Surgical History: Reports: None Musculoskeletal Surgical History: Reports: None Social & Family History - Family History Family Medical History: No Pertinent Family History Cardiac: Reports: Other (See Below) Other Cardiac Family History: reports has family has cardiac issues - Tobacco Use Tobacco Use Status *Q: Current Every Day Tobacco User Years of Tobacco use: 10 Packs/Tins Daily: 0.3 Used Tobacco, but Quit: No Second Hand Smoke Exposure: No - Caffeine Use Caffeine Use: Reports: Coffee, Energy Drinks Caffeine Use Comment: did not ask - Recreational Drug Use Recreational Drug Use: No - Living Situation & Occupation Living situation: Reports: Single, with Significant Other Occupation: Employed ED ROS GENERAL - Review of Systems Review Of Systems: See Below Constitutional: Denies: Fever, Chills HEENT: Reports: No Symptoms Respiratory: Reports: No Symptoms Cardiovascular: Reports: No Symptoms Endocrine: Reports: No Symptoms GI/Abdominal: Denies: Abdominal Pain, Diarrhea, Nausea, Vomiting : Reports: Discharge, Dysuria, Frequency, Pain, Urgency. Denies: Flank Pain Musculoskeletal: Reports: No Symptoms Skin: Reports: No Symptoms Neurological: Reports: No Symptoms Psychiatric: Reports: Anxiety Hematologic/Lymphatic: Reports: No Symptoms Immunologic: Reports: No Symptoms ED EXAM, RENAL/ - Physical Exam Exam: See Below Exam Limited By: No Limitations General Appearance: Alert, WD/WN, No Apparent Distress Eye Exam: Bilateral Eye: EOMI Ears: Hearing Grossly Normal Nose: Normal Inspection Throat/Mouth: Normal Inspection, Normal Voice, No Airway Compromise Head: Atraumatic Neck: Normal Inspection Respiratory/Chest: No Respiratory Distress GI/Abdominal: Normal Bowel Sounds, Soft, Non-Tender, No Organomegaly, No Distention (Female) Exam: Deferred (Patient had gynecological exam yesterday and followed up lab work shows positive for bacterial vaginosis.) Back Exam: Normal Inspection, Full Range of Motion Extremities: Normal Inspection Neurological: Alert, Oriented Psychiatric: Normal Affect, Anxious Skin Exam: Warm, Dry, Intact, Normal Color, No Rash Lymphatic: No Adenopathy Course - Vital Signs Last Recorded V/S: Last Vital Signs Temp 97.8 F 05/31/21 09:32 Pulse 89 05/31/21 09:32 Resp 18 05/31/21 09:32 BP 135/85 05/31/21 09:32 Pulse Ox 96 05/31/21 09:32 - Orders/Labs/Meds Labs: Laboratory Tests 05/31/21 05/31/21 05/31/21 Range/Units 09:20 09:44 09:44 WBC 8.81 (5.00-10.00) 10^3/uL RBC 4.58 (3.80-5.50) 10^6/uL Hgb 13.7 (12.0-16.0) g/dL Hct 41.2 (37.0-47.0) % MCV 90.0 (82.0-92.0) fL MCH 29.9 (27.0-31.0) pg MCHC 33.3 (32.0-36.0) g/dL RDW 12.2 (11.5-14.5) % Plt Count 251 (150-400) 10^3/uL MPV 10.0 (7.4-10.4) fL Immature Gran % (Auto) 0.1 (0.0-5.0) % Neut % (Auto) 58.3 (50.0-70.0) % Lymph % (Auto) 26.8 (20.0-40.0) % [place] % (Auto) 12.1 H (2.0-8.0) % Eos % (Auto) 2.2 (1.0-3.0) % Baso % (Auto) 0.5 (0.0-1.0) % Neut # (Auto) 5.14 (2.50-7.00) 10^3/uL Lymph # (Auto) 2.36 (1.00-4.00) 10^3/uL [place] # (Auto) 1.07 H (0.10-0.80) 10^3/uL Eos # (Auto) 0.19 (0.10-0.30) 10^3/uL Baso # (Auto) 0.04 (0.00-0.10) 10^3/uL Immature Gran # (Auto) 0.01 (0.00-0.50) 10^3/uL Sodium 139 (136-145) mmol/L Potassium 3.8 (3.5-5.1) mmol/L Chloride 101 (98-107) mmol/L Carbon Dioxide 26.7 (21.0-32.0) mmol/L Anion Gap 15.1 H (5-15) mmol/L BUN 16 (7-18) mg/dL Creatinine 0.68 (0.51-1.17) mg/dL Est Cr Clr Drug Dosing 117.23 mL/min Estimated GFR (MDRD) > 60 mL/min Glucose 101 (70-140) mg/dL Calcium 8.6 L (8.7-10.3) mg/dL Total Bilirubin 0.5 (0.2-1.0) mg/dL AST 16 (15-37) U/L ALT 27 (14-63) U/L Alkaline Phosphatase 66 (46-116) U/L Total Protein 7.1 (6.4-8.2) g/dL Albumin 3.46 (3.40-5.00) g/dL Specimen Type Urinvoid Urine Color Yellow (YELLOW) Urine Appearance Clear (CLEAR) Urine pH 7.0 (5.0-9.0) Ur Specific Blue 1.025 (1.005-1.030) Urine Protein Trace H (NEGATIVE) mg/dL Urine Glucose (UA) Negative (NEGATIVE) mg/dL Urine Ketones Negative (NEGATIVE) mg/dL Urine Occult Blood Moderate H (NEGATIVE) Urine Nitrite Negative (NEGATIVE) Urine Bilirubin Negative (NEGATIVE) Urine Urobilinogen 0.2 (0.2-1.0) E.U./dL Ur Leukocyte Esterase Negative (NEGATIVE) Urine RBC 5-10 H (0-5) /HPF Urine WBC 0-5 (0-5) /HPF Ur Epithelial Cells Moderate H /LPF Urine Bacteria Few (NONE TO FEW) /HPF Meds: Medications Discontinued Medications Generic Name Dose Route Start Last Admin Trade Name Freq PRN Reason Stop Dose Admin Ketorolac Tromethamine 60 mg 05/31/21 09:50 05/31/21 09:54 Ketorolac 60 Mg/2 Ml Sdv IM 05/31/21 09:51 60 mg ONETIME ONE Administration - Re-Assessments/Exams Free Text/Narrative Re-Assessment/Exam: 05/31/21 10:37 Patient was given 60 IM of Toradol reports some improvement of her discomfort. Lab results was gone over with the patient she was positive for GA RD vaginal DNA positive consistent with bacterial vaginosis. Departure - Departure Time of Disposition: 10:38 Disposition: Home, Self-Care 01 Condition: Good Clinical Impression: BV (bacterial vaginosis) - Discharge Information Instructions: Bacterial Vaginosis, [id number] Referrals: Siean Barron MD [Primary Care Provider] - Forms: ED Department Discharge Care Plan Goals: 1. metronidazole 500mg p.o. twice daily for 7 days. 2. No sexual activity for 10 days. 3. May take Toradol or NSAIDs for any pain or discomfort 4. Follow-up with your primary care if symptoms not resolving after completion of medication. Sepsis Event Note (ED) - Evaluation Sepsis Screening Result: No Definite Risk - Focused Exam Vital Signs: Vital Signs Temp Pulse Resp BP Pulse Ox 05/31/21 09:32 97.8 F 89 18 135/85 96 - Assessment/Plan Assessment:: Bacterial vaginosis Plan: 1. metronidazole 500mg p.o. twice daily for 7 days. 2. No sexual activity for 10 days. 3. May take Toradol or NSAIDs for any pain or discomfort 4. Follow-up with your primary care if symptoms not resolving after completion of medication.
== END 2021-05-31 10:27 | disposition home or self-care (01) ==
LOC: KA.ED 09:10
DX: N76.0 Acute vaginitis (principal); B96.89 Other specified bacterial agents as the cause of diseases classified elsewhere; Z72.0 Tobacco use; Z88.0 Allergy status to penicillin; Z88.1 Allergy status to other antibiotic agents; Z88.8 Allergy status to other drugs, medicaments and biological substances
CPT/HCPCS: 36415; 80053; 81001; 85025; 96372; 99283; 99284; J1885

== ENCOUNTER 2021-10-12 22:35 | Emergency (ER) | payer SELFPAY ==
[2021-10-12] MEDS: Ketorolac 60 MG/2 ML SDV IM ONE (23:35)
[2021-10-13 00:42] VITALS: BP 163/81; PULSE 76
== END 2021-10-12 23:40 | disposition home or self-care (01) ==
LOC: KA.ED 22:35
DX: R07.89 Other chest pain (principal); Z87.891 Personal history of nicotine dependence; Z88.0 Allergy status to penicillin; Z88.1 Allergy status to other antibiotic agents; Z88.2 Allergy status to sulfonamides
CPT/HCPCS: 71046; 93010; 96372; 99284; 99285-25; J1885

== ENCOUNTER 2021-12-23 16:45 | Emergency (ER) | payer SELFPAY ==
[2021-12-23 17:02] VITALS: BP 148/90; PULSE 85
== END 2021-12-23 17:55 | disposition home or self-care (01) ==
LOC: KA.ED 16:45
DX: R07.89 Other chest pain (principal); F41.9 Anxiety disorder, unspecified; Z88.0 Allergy status to penicillin; Z88.2 Allergy status to sulfonamides; Z88.8 Allergy status to other drugs, medicaments and biological substances; Z86.16 Personal history of COVID-19
CPT/HCPCS: 36415; 71046; 84484; 86140; 93010; 99284; 99285-25

== ENCOUNTER 2022-03-11 15:58 | Emergency (ER) | payer OTHER ==
[2022-03-11 16:18] VITALS: BP 123/73; PULSE 83
[2022-03-11] MEDS: Ketorolac 60 MG/2 ML SDV IM ONE (16:35)
== END 2022-03-11 17:25 | disposition home or self-care (01) ==
LOC: KA.ED 15:58
DX: S93.402A Sprain of unspecified ligament of left ankle, initial encounter (principal); S93.602A Unspecified sprain of left foot, initial encounter; Z88.0 Allergy status to penicillin; Z88.1 Allergy status to other antibiotic agents; Z86.16 Personal history of COVID-19; X50.1XXA Overexertion from prolonged static or awkward postures, initial encounter; Y99.0 Civilian activity done for income or pay
CPT/HCPCS: 73600-LT; 73620-LT; 96372; 99283; 99283-25; J1885

== ENCOUNTER 2022-10-18 00:42 | Emergency (ER) | payer SELFPAY ==
[2022-10-18 00:45] VITALS: PULSE 72
[2022-10-18 00:56] VITALS: BP 152/88
== END 2022-10-18 01:42 | disposition home or self-care (01) ==
LOC: KA.ED 00:42
DX: J06.9 Acute upper respiratory infection, unspecified (principal); Z88.0 Allergy status to penicillin; Z88.1 Allergy status to other antibiotic agents; Z88.2 Allergy status to sulfonamides
CPT/HCPCS: 99283

== ENCOUNTER 2022-10-25 00:29 | Emergency (ER) | payer SELFPAY ==
[2022-10-25 00:49] VITALS: BP 165/95; PULSE 75
[2022-10-25] MEDS ORDERED: Ketorolac 30 MG/ML SDV IVPUSH ONE (00:56)
[2022-10-25] MEDS ORDERED: Cyclobenzaprine 10 MG Tab PO ONE ×2 (00:56→02:04)
== END 2022-10-25 02:20 | disposition home or self-care (01) ==
LOC: KA.ED 00:29
DX: M62.830 Muscle spasm of back (principal); Z88.0 Allergy status to penicillin; Z88.2 Allergy status to sulfonamides
CPT/HCPCS: 96374; 99283-25; 99284; A9270-GY; J1885

== ENCOUNTER 2022-10-25 18:29 | Emergency (ER) | payer SELFPAY ==
[2022-10-25 18:49] VITALS: BP 169/94; PULSE 90
[2022-10-25] MEDS ORDERED: Magnesium Citrate Solution 296 ML Bottle PO ONE (20:14)
== END 2022-10-25 20:26 | disposition home or self-care (01) ==
LOC: KA.ED 18:29
DX: K59.00 Constipation, unspecified (principal); R31.29 Other microscopic hematuria; Z88.0 Allergy status to penicillin; Z88.1 Allergy status to other antibiotic agents
CPT/HCPCS: 74021; 81001; 99283; 99284

== ENCOUNTER 2023-01-20 19:52 | Emergency (ER) | payer SELFPAY ==
[2023-01-20] MEDS: Sodium Chloride 0.9% 10 ML Syringe FLUSH PRN (20:28)
[2023-01-20] MEDS: Ketorolac 30 MG/ML SDV IVPUSH ONE (20:36)
[2023-01-20] MEDS: Sodium Chloride 0.9% 1,000 ML IV ONE (20:37)
[2023-01-20 21:15] LABS: ANION GAP 11.5 mmol/L (5-15)
[2023-01-20 21:44] LABS: CORONAVIRUS COVID-19 NAA POSITIVE (NEGATIVE)
[2023-01-21 00:08] VITALS: BP 137/74; PULSE 74
== END 2023-01-20 22:12 | disposition home or self-care (01) ==
LOC: KA.ED 19:52 → SUPCPDRO 19:52 → KA.ED 22:12
DX: U07.1 COVID-19 (principal); G44.209 Tension-type headache, unspecified, not intractable; Z88.0 Allergy status to penicillin; Z88.1 Allergy status to other antibiotic agents
CPT/HCPCS: 0240U; 80053; 85025; 96361; 96374; 99283; 99284-25; J1885; J3490; J7030

== ENCOUNTER 2023-10-31 08:49 | Emergency (ER) | payer MEDICAID ==
[2023-10-31 09:02] VITALS: BP 122/80; PULSE 89
[2023-10-31] MEDS: traMADol 50 MG Tab PO ONE (09:44)
[2023-10-31] MEDS: Ketorolac 30 MG/ML SDV IM ONE (09:45)
== END 2023-10-31 09:57 | disposition home or self-care (01) ==
LOC: KA.ED 08:49
DX: S46.911A Strain of unspecified muscle, fascia and tendon at shoulder and upper arm level, right arm, initial encounter (principal); F17.210 Nicotine dependence, cigarettes, uncomplicated; Z88.1 Allergy status to other antibiotic agents; Z88.0 Allergy status to penicillin; Z88.2 Allergy status to sulfonamides; Z79.899 Other long term (current) drug therapy; X50.0XXA Overexertion from strenuous movement or load, initial encounter; Y93.67 Activity, basketball; Z86.16 Personal history of COVID-19
CPT/HCPCS: 73030-RT; 96372; 99283; A9270-GY; J1885

== ENCOUNTER 2023-11-07 20:32 | Emergency (ER) | payer MEDICAID ==
[2023-11-07] MEDS ORDERED: Sodium Chloride 0.9% 10 ML Syringe FLUSH PRN (20:57)
[2023-11-07 21:03] LABS: BASOPHILS ABSOLUTE AUTO 0.04 10^3/uL (0.00-0.10); BASOPHILS PERCENT AUTO 0.3 % (0.0-1.0); EOSINOPHILS ABSOLUTE AUTO 0.33 10^3/uL (0.10-0.30); EOSINOPHILS PERCENT AUTO 2.5 % (1.0-3.0); HEMATOCRIT 44.8 % (37.0-47.0); HEMOGLOBIN 15.1 g/dL (12.0-16.0); IMMATURE GRAN ABSOLUTE AUTO 0.03 10^3/uL (0.00-0.50); IMMATURE GRAN PERCENT AUTO 0.2 % (0.0-5.0); LYMPHOCYTES ABSOLUTE AUTO 4.37 10^3/uL (1.00-4.00); LYMPHOCYTES PERCENT AUTO 32.5 % (20.0-40.0); MEAN CORPUSCULAR HEMOGLOBIN 30.3 pg (27.0-31.0); MEAN CORPUSCULAR HGB CONC 33.7 g/dL (32.0-36.0); MEAN PLATELET VOLUME 10.1 fL (7.4-10.4); MONOCYTES ABSOLUTE AUTO 1.22 10^3/uL (0.10-0.80); MONOCYTES PERCENT AUTO 9.1 % (2.0-8.0); NEUTROPHILS ABSOLUTE AUTO 7.47 10^3/uL (2.50-7.00); NEUTROPHILS PERCENT AUTO 55.4 % (50.0-70.0); PLATELET COUNT,PLT 286 10^3/uL (150-400); RED BLOOD CELL COUNT 4.98 10^6/uL (3.80-5.50); RED CELL DISTRIBUTION WIDTH 12.2 % (11.5-14.5); WHITE BLOOD CELL COUNT,WBC 13.46 10^3/uL (5.00-10.00)
[2023-11-07] MEDS: Sodium Chloride 0.9% 1,000 ML ONE (21:06)
[2023-11-07] MEDS: Sodium Chloride 0.9% 1,000 ML IV ONE (21:06)
[2023-11-07 21:08] LABS: APPEARANCE,URINE SLIGHTLY CLOUDY (CLEAR); BILIRUBIN,URINE NEGATIVE (NEGATIVE); COLOR,URINE YELLOW (YELLOW); GLUCOSE,URINE NEGATIVE (NEGATIVE); KETONES,URINE NEGATIVE (NEGATIVE); LEUKOCYTE ESTERASE,URINE NEGATIVE (NEGATIVE); NITRITE,URINE NEGATIVE (NEGATIVE); OCCULT BLOOD,URINE MODERATE (NEGATIVE); PH,URINE 6.5 (5.0-9.0); PROTEIN,URINE NEGATIVE (NEGATIVE); UROBILINOGEN,URINE 0.2 E.U./dL (0.2-1.0)
[2023-11-07 21:14] LABS: BACTERIA,URINE RARE /HPF (NONE TO FEW); EPITHELIAL CELLS,URINE RARE /LPF; MUCUS,URINE RARE /LPF (NEGATIVE); WBC,URINE 0-5 /HPF (0-5)
[2023-11-07 21:16] LABS: ALBUMIN 3.91 g/dL (3.40-5.00); ANION GAP 13.3 mmol/L (5-15); BILIRUBIN TOTAL 0.4 mg/dL (0.2-1.0); CALCIUM 8.8 mg/dL (8.7-10.3); CARBON DIOXIDE,CO2 29.4 mmol/L (21.0-32.0); CREATININE 0.68 mg/dL (0.51-1.17); EST CRCL DRUG DOSING (CG) 117.73 mL/min; PROTEIN TOTAL,TP 7.7 g/dL (6.4-8.2)
[2023-11-07 21:22] LABS: POTASSIUM,K 3.7 mmol/L (3.5-5.1)
[2023-11-07] MEDS: LORazepam 2 MG/ML SDV IVPUSH ONE (21:22)
[2023-11-07] MEDS: Iopamidol 755 Mg/ML 100 ML Bottle IV ONE (22:17)
[2023-11-07] MEDS: Sodium Chloride 0.9% 50 ML IV SCH (22:17)
[2023-11-07] MEDS ORDERED: Naloxone 0.4 MG/ML SDV IVPUSH PRN (22:23)
[2023-11-07] MEDS: HYDROmorphone 1 MG/ML Syringe IVPUSH ONE (22:28)
[2023-11-07] MEDS: hydrALAZINE 20 MG/ML SDV IVPUSH ONE ×2 (22:44→23:10)
[2023-11-07] MEDS: hydrALAZINE 10 MG Tab PO SCH (23:26)
[2023-11-07 23:57] LABS: C-REACTIVE PROTEIN 0.59 mg/dL (0.00-0.50)
[2023-11-08 00:08] LABS: B-TYPE NATRIURETIC PEPTIDE,BNP 21 pg/mL (0-100)
[2023-11-08] MEDS: Ondansetron 4 MG/2 ML SDV IVPUSH ONE (00:18)
[2023-11-08 00:24] VITALS: BP 130/80; PULSE 84
== END 2023-11-08 00:49 | disposition home or self-care (01) ==
LOC: KA.ED 20:32
DX: R10.31 Right lower quadrant pain (principal); R31.9 Hematuria, unspecified; F41.8 Other specified anxiety disorders; I10 Essential (primary) hypertension; R06.02 Shortness of breath; Z86.16 Personal history of COVID-19; Z79.899 Other long term (current) drug therapy; Z88.1 Allergy status to other antibiotic agents; Z88.2 Allergy status to sulfonamides; Z88.8 Allergy status to other drugs, medicaments and biological substances
CPT/HCPCS: 36415; 74177; 80053; 81001; 81025; 83605; 83880; 84484; 85025; 85379; 86140; 93005; 93010; 96374; 96375; 99284; 99284-25; A9270-GY; J0360; J1170; J2060; J2405; J3490; J7030; Q9967

== ENCOUNTER 2024-01-14 20:25 | Emergency (ER) | payer MEDICAID ==
[2024-01-14] MEDS: Diphtheria,Pertussis(Acell),Tetanus Vaccine 0.5 ML Syringe IM ONE (20:45)
[2024-01-14 20:55] VITALS: BP 137/85; PULSE 84
== END 2024-01-14 20:57 | disposition home or self-care (01) ==
LOC: KA.ED 20:25
DX: S50.811A Abrasion of right forearm, initial encounter (principal); Z86.16 Personal history of COVID-19; Z86.19 Personal history of other infectious and parasitic diseases; Z79.899 Other long term (current) drug therapy; Z88.0 Allergy status to penicillin; Z88.1 Allergy status to other antibiotic agents; Z88.2 Allergy status to sulfonamides; Z88.8 Allergy status to other drugs, medicaments and biological substances; Z23 Encounter for immunization; W22.8XXA Striking against or struck by other objects, initial encounter
CPT/HCPCS: 90471; 90715; 99283; 99283-25

== ENCOUNTER 2024-04-02 21:33 | Emergency (ER) | payer MEDICAID ==
[2024-04-02] MEDS ORDERED: Sodium Chloride 0.9% 10 ML Syringe FLUSH PRN (21:47)
[2024-04-02 22:04] LABS: BASOPHILS ABSOLUTE AUTO 0.03 10^3/uL (0.00-0.10); BASOPHILS PERCENT AUTO 0.2 % (0.0-1.0); EOSINOPHILS PERCENT AUTO 2.5 % (1.0-3.0); HEMATOCRIT 43.3 % (37.0-47.0); HEMOGLOBIN 14.6 g/dL (12.0-16.0); IMMATURE GRAN ABSOLUTE AUTO 0.02 10^3/uL (0.00-0.50); IMMATURE GRAN PERCENT AUTO 0.2 % (0.0-5.0); LYMPHOCYTES ABSOLUTE AUTO 3.86 10^3/uL (1.00-4.00); LYMPHOCYTES PERCENT AUTO 31.9 % (20.0-40.0); MEAN CORPUSCULAR HEMOGLOBIN 30.5 pg (27.0-31.0); MEAN CORPUSCULAR HGB CONC 33.7 g/dL (32.0-36.0); MEAN CORPUSCULAR VOLUME 90.6 fL (82.0-92.0); MEAN PLATELET VOLUME 10.3 fL (7.4-10.4); MONOCYTES ABSOLUTE AUTO 1.25 10^3/uL (0.10-0.80); MONOCYTES PERCENT AUTO 10.3 % (2.0-8.0); NEUTROPHILS ABSOLUTE AUTO 6.63 10^3/uL (2.50-7.00); NEUTROPHILS PERCENT AUTO 54.9 % (50.0-70.0); PLATELET COUNT,PLT 251 10^3/uL (150-400); RED BLOOD CELL COUNT 4.78 10^6/uL (3.80-5.50); RED CELL DISTRIBUTION WIDTH 12.2 % (11.5-14.5); WHITE BLOOD CELL COUNT,WBC 12.09 10^3/uL (5.00-10.00)
[2024-04-02] MEDS: Sodium Chloride 0.9% 1,000 ML IV ONE (22:05)
[2024-04-02 22:20] LABS: ALBUMIN 3.56 g/dL (3.40-5.00); ANION GAP 14.2 mmol/L (5-15); BILIRUBIN TOTAL 0.2 mg/dL (0.2-1.0); CALCIUM 8.7 mg/dL (8.7-10.3); CARBON DIOXIDE,CO2 27.7 mmol/L (21.0-32.0); CREATININE 0.7 mg/dL (0.51-1.17); EST CRCL DRUG DOSING (CG) 114.37 mL/min; POTASSIUM,K 3.9 mmol/L (3.5-5.1); PROTEIN TOTAL,TP 7.3 g/dL (6.4-8.2)
[2024-04-02 22:51] VITALS: BP 140/90; PULSE 78
== END 2024-04-02 23:15 | disposition home or self-care (01) ==
LOC: KA.ED 21:33
DX: G57.92 Unspecified mononeuropathy of left lower limb (principal); Z88.0 Allergy status to penicillin; Z88.1 Allergy status to other antibiotic agents; Z88.2 Allergy status to sulfonamides; Z88.8 Allergy status to other drugs, medicaments and biological substances; Z79.51 Long term (current) use of inhaled steroids; Z79.899 Other long term (current) drug therapy; Z86.16 Personal history of COVID-19
CPT/HCPCS: 36415; 80053; 85025; 85379; 87040; 96360; 99284-25; J7030

== ENCOUNTER 2024-07-27 21:40 | Emergency (ER) | payer MEDICAID ==
[2024-07-27 23:28] VITALS: BP 176/101; PULSE 80
== END 2024-07-27 23:15 | disposition home or self-care (01) ==
LOC: KA.ED 21:40
DX: K59.04 Chronic idiopathic constipation (principal); F17.210 Nicotine dependence, cigarettes, uncomplicated; Z86.16 Personal history of COVID-19; Z79.899 Other long term (current) drug therapy; Z88.0 Allergy status to penicillin; Z88.1 Allergy status to other antibiotic agents; Z88.2 Allergy status to sulfonamides
CPT/HCPCS: 74021; 99283

== ENCOUNTER 2024-08-20 15:35 | Emergency (ER) | payer MEDICAID ==
[2024-08-20] MEDS: Ondansetron 4 MG/2 ML SDV ONE (16:05)
[2024-08-20] MEDS: Sodium Chloride 0.9% 1,000 ML ONE (16:05)
[2024-08-20] MEDS: Ondansetron 4 MG/2 ML SDV IVPUSH ONE (16:06)
[2024-08-20] MEDS: Sodium Chloride 0.9% 1,000 ML IV ONE (16:06)
[2024-08-20 16:11] LABS: BASOPHILS ABSOLUTE AUTO 0.05 10^3/uL (0.00-0.10); BASOPHILS PERCENT AUTO 0.4 % (0.0-1.0); EOSINOPHILS ABSOLUTE AUTO 0.18 10^3/uL (0.10-0.30); EOSINOPHILS PERCENT AUTO 1.5 % (1.0-3.0); HEMATOCRIT 45.4 % (37.0-47.0); HEMOGLOBIN 15.3 g/dL (12.0-16.0); IMMATURE GRAN ABSOLUTE AUTO 0.04 10^3/uL (0.00-0.50); IMMATURE GRAN PERCENT AUTO 0.3 % (0.0-5.0); LYMPHOCYTES ABSOLUTE AUTO 3.25 10^3/uL (1.00-4.00); MEAN CORPUSCULAR HEMOGLOBIN 30.2 pg (27.0-31.0); MEAN CORPUSCULAR HGB CONC 33.7 g/dL (32.0-36.0); MEAN CORPUSCULAR VOLUME 89.7 fL (82.0-92.0); MEAN PLATELET VOLUME 10.4 fL (7.4-10.4); MONOCYTES ABSOLUTE AUTO 0.96 10^3/uL (0.10-0.80); NEUTROPHILS ABSOLUTE AUTO 7.54 10^3/uL (2.50-7.00); NEUTROPHILS PERCENT AUTO 62.8 % (50.0-70.0); PLATELET COUNT,PLT 269 10^3/uL (150-400); RED BLOOD CELL COUNT 5.06 10^6/uL (3.80-5.50); RED CELL DISTRIBUTION WIDTH 11.9 % (11.5-14.5); WHITE BLOOD CELL COUNT,WBC 12.02 10^3/uL (5.00-10.00)
[2024-08-20 16:27] LABS: ALBUMIN 3.74 g/dL (3.40-5.00); ANION GAP 13.1 mmol/L (5-15); BILIRUBIN TOTAL 0.3 mg/dL (0.2-1.0); CALCIUM 8.5 mg/dL (8.7-10.3); CARBON DIOXIDE,CO2 27.4 mmol/L (21.0-32.0); CREATININE 0.66 mg/dL (0.51-1.17); EST CRCL DRUG DOSING (CG) 120.08 mL/min; POTASSIUM,K 3.5 mmol/L (3.5-5.1); PROTEIN TOTAL,TP 7.5 g/dL (6.4-8.2)
[2024-08-20] MEDS: Ketorolac 30 MG/ML SDV IVPUSH ONE (16:45)
[2024-08-20 16:52] LABS: APPEARANCE,URINE CLEAR (CLEAR); BILIRUBIN,URINE NEGATIVE (NEGATIVE); COLOR,URINE LIGHT YELLOW (YELLOW); GLUCOSE,URINE NEGATIVE (NEGATIVE); KETONES,URINE NEGATIVE (NEGATIVE); LEUKOCYTE ESTERASE,URINE NEGATIVE (NEGATIVE); NITRITE,URINE NEGATIVE (NEGATIVE); PROTEIN,URINE NEGATIVE (NEGATIVE); UROBILINOGEN,URINE 0.2 E.U./dL (0.2-1.0)
[2024-08-20 16:59] LABS: OCCULT BLOOD,URINE TRACE-INTACT (NEGATIVE)
[2024-08-20 17:00] LABS: RBC,URINE 0-5 /HPF (0-5); WBC,URINE 0-5 /HPF (0-5)
[2024-08-20] MEDS: Sodium Chloride 0.9% 50 ML IV SCH (17:00)
[2024-08-20] MEDS: Iopamidol 755 Mg/ML 100 ML Bottle IV ONE (17:00)
[2024-08-20 17:01] LABS: BACTERIA,URINE RARE /HPF (NONE TO FEW); EPITHELIAL CELLS,URINE RARE /LPF
[2024-08-20 18:23] VITALS: BP 150/80; PULSE 65
== END 2024-08-20 19:03 | disposition home or self-care (01) ==
LOC: KA.ED 15:35
DX: R19.7 Diarrhea, unspecified (principal); R10.32 Left lower quadrant pain; F17.210 Nicotine dependence, cigarettes, uncomplicated; Z86.16 Personal history of COVID-19; Z79.899 Other long term (current) drug therapy; Z88.1 Allergy status to other antibiotic agents; Z88.0 Allergy status to penicillin; Z88.2 Allergy status to sulfonamides
CPT/HCPCS: 36415; 74177; 80053; 81001; 83690; 85025; 96361; 96374; 96375; 99284; 99284-25; J1885; J2405; J3490; J7030; Q9967

== ENCOUNTER 2025-06-24 17:33 | Emergency (ER) | payer MEDICAID ==
[2025-06-24 18:03] LABS: BASOPHILS ABSOLUTE AUTO 0.04 10^3/uL (0.00-0.10); BASOPHILS PERCENT AUTO 0.4 % (0.0-1.0); EOSINOPHILS ABSOLUTE AUTO 0.19 10^3/uL (0.10-0.30); EOSINOPHILS PERCENT AUTO 1.7 % (1.0-3.0); IMMATURE GRAN ABSOLUTE AUTO 0.01 10^3/uL (0.00-0.04); IMMATURE GRAN PERCENT AUTO 0.1 % (0.0-0.4); LYMPHOCYTES ABSOLUTE AUTO 3.25 10^3/uL (1.00-4.00); LYMPHOCYTES PERCENT AUTO 29.5 % (20.0-40.0); MEAN PLATELET VOLUME 10.3 fL (7.4-10.4); MONOCYTES ABSOLUTE AUTO 1.14 10^3/uL (0.10-0.80); MONOCYTES PERCENT AUTO 10.4 % (2.0-8.0); NEUTROPHILS ABSOLUTE AUTO 6.37 10^3/uL (2.50-7.00); NEUTROPHILS PERCENT AUTO 57.9 % (50.0-70.0); PLATELET COUNT,PLT 241 10^3/uL (150-400); RED BLOOD CELL COUNT 4.61 10^6/uL (3.80-5.50); RED CELL DISTRIBUTION WIDTH 12.5 % (11.5-14.5); WHITE BLOOD CELL COUNT,WBC 11.00 10^3/uL (5.00-10.00)
[2025-06-24 18:18] LABS: ALANINE AMINOTRANSFERASE,ALT 20.0 U/L (14-63); ASPARTATE AMNIOTRANSFERASE,AST 12.0 U/L (15-37); BILIRUBIN TOTAL 0.2 mg/dL (0.2-1.0); BLOOD UREA NITROGEN,BUN 11.0 mg/dL (7-18); CARBON DIOXIDE,CO2 30.9 mmol/L (21.0-32.0); CHLORIDE,CL 102.0 mmol/L (98-107); CREATININE 0.7 mg/dL (0.51-1.17); EST CRCL DRUG DOSING (CG) 112.06 mL/min; ESTIMATED GFR 110.0 mL/min (>=60); GLUCOSE RANDOM 84.0 mg/dL (70-140); POTASSIUM,K 3.9 mmol/L (3.5-5.1); PROTEIN TOTAL,TP 7.5 g/dL (6.4-8.2); SODIUM,NA 140.0 mmol/L (136-145)
[2025-06-24 18:37] VITALS: BP 148/85; PULSE 76
== END 2025-06-24 18:45 | disposition home or self-care (01) ==
LOC: KA.ED 17:33
DX: J06.9 Acute upper respiratory infection, unspecified (principal); Z88.0 Allergy status to penicillin; Z88.1 Allergy status to other antibiotic agents; Z88.2 Allergy status to sulfonamides; Z88.8 Allergy status to other drugs, medicaments and biological substances; Z79.899 Other long term (current) drug therapy; Z86.16 Personal history of COVID-19
CPT/HCPCS: 36415; 71045; 80053; 85025; 87428-QW; 99283; 99285